=== PATIENT | male | born 1935 | race Caucasian/White ===

== ENCOUNTER 2023-02-12 14:05 | Outpatient (AMB) | payer MEDICARE, OTHER, SELFPAY ==
--- NOTE | 2023-02-12 14:32 | HO.NEPHOV ---
HPI HPI Comments History of Present Illness Details I had the pleasure of seeing Edin in follow-up of his chronic kidney disease and hypertension. He is regularly followed up in [place] for his vascular issues. His vascular surgeon has retired and has been assigned a new physician in [place]. He does not have any active vascular symptoms. He denies intermittent claudication, rest pain, discoloration of his toes. He is very active. He does not have any chest pain, shortness of breath , paroxysmal nocturnal dyspnea or orthopnea. He avoids nonsteroidal anti-inflammatory medications. His serum creatinine had been stable at 1.3. He feels well. [facility] Medical History (Updated 02/13/23 @ 05:09 by Denis Hou MD) Tubular adenoma Sciatica Raynauds phenomenon Plantar fasciitis Peripheral vascular disease Osteosclerosis Hypothyroidism Hypertension Hyperlipidemia Heart disease Depressive disorder Chronic sinusitis Chronic kidney disease Asthma Allergic rhinitis Surgical History (Updated 02/12/23 @ 14:19 by Faina Mendez MA) Hx of CABG History of hernia repair History of appendectomy Family History (Updated 02/12/23 @ 14:19 by Faina Mendez MA) Brother Heart disease Diabetes Social History (Updated 02/12/23 @ 14:19 by Faina Mendez MA) Alcohol intake: current Patient Tobacco Use Status: Former Tobacco user Vital Signs 02/12/23 14:33 Height 5 ft 6 in Weight 157 lb 6 oz BMI 25.4 BP 150/70 H Blood Pressure Location Lt brachial Position Sitting Pulse 64 Pulse Source Pulse Oximeter Pulse Oximetry (%) 97 Oxygen Delivery Method Room Air Physical Exam Vital Signs: Last Vital Signs Pulse 64 02/12/23 14:33 BP 150/70 H 02/12/23 14:33 Pulse Ox 97 02/12/23 14:33 Oxygen Delivery Method Room Air 02/12/23 14:33 BMI result Body Mass Index 25.4 Const General: comfortable and no acute distress Orientation/consciousness: patient oriented x3 HEENT Head: Yes normocephalic Mouth: Normal oral and palatal mucosa present Eyes EOM: EOMs intact bilaterally Neck Neck: Yes supple Resp Auscultation: clear to auscultation bilaterally Cardio Jugular venous distension: no JVD Rate: regular rate Heart sounds: Murmur heart sound present GI Palpation (GI): Soft to palpation Auscultation: normal bowel sounds General: Yes no CVA tenderness Back/Spine/Pelvis Back: no CVA tenderness Skin General skin exam: no rashes or lesions noted Neuro General: patient oriented x3 and moves all extremities Extrem General: Yes no pedal edema Assessment & Plan Assessment & Plan (1) CKD (chronic kidney disease) stage 3, GFR 30-59 ml/min: Code(s): N18.30 - Chronic kidney disease, stage 3 unspecified Qualifiers: Chronic kidney disease stage 3 subtype: stage 3a (GFR 45-59) Qualified Code(s): N18.31 - Chronic kidney disease, stage 3a (2) Hypertension: Code(s): I10 - Essential (primary) hypertension Qualifiers: 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 He has peripheral arterial disease as well. He follows up with the vascular surgeon. His serum creatinine has been stable at 1.3. His blood pressure has been at goal. I plan to do a Doppler of his renal arteries after his next office visit. He is on Plavix, statins as well as well as lisinopril and metoprolol which he is tolerating very well. His serum potassium has been normal. He is mildly anemic which has been closely followed by his primary care physician as per the patient. He does not have any active blood loss. He maintains good hydration. His volume status is quite optimal. I did not make any medication changes today. Follow-up blood work and urine studies were ordered. Answered all questions. Time spent during encounter, retrieval of data and documentation includes 31 minutes. Orders: Orders Calcium 02/12/23 I10 - Essential (primary) hypertension, N18.30 - Chronic kidney disease, stage 3 unspecified Complete Blood Count Auto Diff 02/12/23 I10 - Essential (primary) hypertension, N18.30 - Chronic kidney disease, stage 3 unspecified Electrolytes 02/12/23 I10 - Essential (primary) hypertension, N18.30 - Chronic kidney disease, stage 3 unspecified Blood Urea Nitrogen 02/12/23 I10 - Essential (primary) hypertension, N18.30 - Chronic kidney disease, stage 3 unspecified Creatinine 02/12/23 I10 - Essential (primary) hypertension, N18.30 - Chronic kidney disease, stage 3 unspecified Protein Creatinine Ratio, Ur 02/12/23 I10 - Essential (primary) hypertension, N18.30 - Chronic kidney disease, stage 3 unspecified Coding Level of Care Code Est Pt Level 4 (79457) Diagnoses Stage 3a chronic kidney disease N18.31 Chronic kidney disease stage 3 subtype: stage 3a (GFR 45-59) 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
[2023-02-12 14:33] VITALS: BP 150/70; PULSE 64; O2SAT 97; BMI 25.4
== END 2023-02-12 15:11 | disposition home or self-care (01) ==
PROVIDERS: PCP Internal Medicine; Visit Provider Internal Medicine Nephrology
DX: N18.31 Chronic kidney disease, stage 3a (principal); I15.0 Renovascular hypertension
CPT/HCPCS: 99214

== ENCOUNTER → 2023-02-12 14:05 | Outpatient (BNVA) | payer MEDICARE, OTHER, SELFPAY | PROVIDERS: PCP Internal Medicine; Visit Provider Internal Medicine Nephrology | DX: I15.0 Renovascular hypertension (principal); N18.31 Chronic kidney disease, stage 3a | CPT/HCPCS: 99212 ==

== ENCOUNTER 2023-06-16 09:24 | Outpatient (AMB) | payer MEDICARE, OTHER, SELFPAY ==
[2023-06-16 09:28] VITALS: BP 128/74; BMI 25.2
--- NOTE | 2023-06-16 09:28 | HO.NEPHOV_ITS ---
HPI HPI Comments History of Present Illness Details I had the pleasure of seeing Edin in follow-up of his chronic kidney disease and hypertension. He is regularly followed up in [place] for his vascular issues. His vascular surgeon has retired and has a new physician in [place]. He does not have any active vascular symptoms. He denies intermittent claudication, rest pain, discoloration of his toes. He is very active. He does not have any chest pain, shortness of breath , paroxysmal nocturnal dyspnea or orthopnea. He avoids nonsteroidal anti-inflammatory medications. His serum creatinine had been stable at 1.3. He has been having spinal stenosis and had intra articular injection. [facility] Medical History (Updated 02/13/23 @ 05:09 by Denis Hou MD) Tubular adenoma Sciatica Raynauds phenomenon Plantar fasciitis Peripheral vascular disease Osteosclerosis Hypothyroidism Hypertension Hyperlipidemia Heart disease Depressive disorder Chronic sinusitis Chronic kidney disease Asthma Allergic rhinitis Surgical History Hx of CABG History of hernia repair History of appendectomy Family History Brother Heart disease Diabetes Social History Alcohol intake: current Patient Tobacco Use Status: Former Tobacco user Vital Signs 06/16/23 09:28 Height 5 ft 6 in Weight 156 lb BMI 25.2 BP 128/74 Blood Pressure Location Lt brachial Position Sitting Physical Exam Vital Signs: Last Vital Signs BP 170/74 H 06/16/23 09:28 BMI result Body Mass Index 25.2 Const General: comfortable and no acute distress Orientation/consciousness: patient oriented x3 HEENT Head: Yes normocephalic Mouth: Normal oral and palatal mucosa present Eyes EOM: EOMs intact bilaterally Neck Neck: Yes supple Resp Auscultation: clear to auscultation bilaterally Cardio Jugular venous distension: no JVD Rate: regular rate GI Palpation (GI): Soft to palpation Auscultation: normal bowel sounds General: Yes no CVA tenderness Back/Spine/Pelvis Back: no CVA tenderness Skin General skin exam: no rashes or lesions noted Neuro General: patient oriented x3 and moves all extremities Extrem General: Yes no pedal edema Assessment & Plan Assessment & Plan (1) CKD (chronic kidney disease) stage 3, GFR 30-59 ml/min: Code(s): N18.30 - Chronic kidney disease, stage 3 unspecified Qualifiers: Chronic kidney disease stage 3 subtype: stage 3a (GFR 45-59) Qualified Code(s): N18.31 - Chronic kidney disease, stage 3a (2) Hypertension: Code(s): I10 - Essential (primary) hypertension Qualifiers: 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 He has peripheral arterial disease as well. He follows up with the vascular surgeon. His serum creatinine has been stable at 1.3. His blood pressure has been at goal. I plan to do a Doppler of his renal arteries if his BP is fluctuant. He is on Plavix, statins as well as well as lisinopril and metoprolol which he is tolerating very well. His serum potassium has been normal. He is mildly anemic which has been closely followed by his primary care physician as per the patient. He does not have any active blood loss. He maintains good hydration. His volume status is quite optimal. I did not make any medication changes today. Follow-up blood work and urine studies were ordered. Answered all questions. 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
== END 2023-06-16 09:52 | disposition home or self-care (01) ==
PROVIDERS: PCP Internal Medicine; Visit Provider Internal Medicine Nephrology
DX: N18.31 Chronic kidney disease, stage 3a (principal); I15.0 Renovascular hypertension
CPT/HCPCS: 99214

== ENCOUNTER → 2023-06-16 09:24 | Outpatient (BNVA) | payer MEDICARE, OTHER, SELFPAY | PROVIDERS: PCP Internal Medicine; Visit Provider Internal Medicine Nephrology | DX: N18.31 Chronic kidney disease, stage 3a (principal) | CPT/HCPCS: 99212 ==

== ENCOUNTER 2023-10-20 09:34 | Outpatient (AMB) | payer MEDICARE, OTHER, SELFPAY ==
[2023-10-20 09:51] VITALS: BP 122/70; PULSE 68; O2SAT 98; BMI 22.8
--- NOTE | 2023-10-20 09:51 | HO.NEPHOV_ITS ---
Vital Signs 10/20/23 09:51 Height 5 ft 6 in Weight 141 lb 2 oz BMI 22.8 BP 122/70 Blood Pressure Location Lt brachial Position Sitting Pulse 68 Pulse Source Pulse Oximeter Pulse Oximetry (%) 98 Oxygen Delivery Method Room Air Intake Visit Reasons: 4 mon follow up / [employer] Super[employer] Required: No Accompanied by: Self / Same As Patient Allergies No Known Allergies Allergy (Verified 10/20/23 09:52) HPI Comments Details: I had the pleasure of seeing Edin in follow-up of his chronic kidney disease and hypertension. He is regularly followed up in [place] for his vascular issues. His vascular surgeon has retired and has a new physician in [place]. He does not have any active vascular symptoms. He denies intermittent claudication, rest pain, discoloration of his toes. He is very active. He does not have any chest pain, shortness of breath , paroxysmal nocturnal dyspnea or orthopnea. He avoids nonsteroidal anti-inflammatory medications. His serum creatinine had been stable [facility] Medical History (Updated 02/13/23 @ 05:09 by Denis Hou MD) Tubular adenoma Sciatica Raynauds phenomenon Plantar fasciitis Peripheral vascular disease Osteosclerosis Hypothyroidism Hypertension Hyperlipidemia Heart disease Depressive disorder Chronic sinusitis Chronic kidney disease Asthma Allergic rhinitis Surgical History Hx of CABG History of hernia repair History of appendectomy Family History Brother Heart disease Diabetes Social History Alcohol intake: current Patient Tobacco Use Status: Former Tobacco user Physical Exam Vital Signs: Last Vital Signs Pulse 68 10/20/23 09:51 BP 122/70 10/20/23 09:51 Pulse Ox 98 10/20/23 09:51 Oxygen Delivery Method Room Air 10/20/23 09:51 BMI result Body Mass Index 22.8 Results Reviewed Nephrology Results: Hgb 12.1 g/dL (14.0-18.0) L 08/11/18 WBC 7.0 X10*3/uL (4.8-10.8) 08/11/18 Plt Count 178 X10*3/uL (160-400) 08/11/18 Sodium 139 MMOL/L (135-145) 08/11/18 Potassium 4.7 MMOL/L (3.3-5.1) 08/11/18 Chloride 106 MMOL/L (96-108) 08/11/18 BUN 34 MG/DL (9-16) H 08/11/18 Creatinine 1.18 MG/DL (0.5-1.4) 08/11/18 Calcium 9.5 MG/DL (8.4-10.2) 08/11/18 Urine Protein TRACE (NEG - TRACE) 08/11/18 Assessment & Plan Assessment & Plan (1) CKD (chronic kidney disease) stage 3, GFR 30-59 ml/min: Code(s): N18.30 - Chronic kidney disease, stage 3 unspecified Category: Medical Qualifiers: Chronic kidney disease stage 3 subtype: stage 3a (GFR 45-59) Qualified Code(s): N18.31 - Chronic kidney disease, stage 3a (2) Hypertension: Code(s): I10 - Essential (primary) hypertension Category: Medical Qualifiers: 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 He has peripheral arterial disease as well. He follows up with the vascular surgeon. His serum creatinine has been stable at 1.3. His blood pressure has been at goal. He is on Plavix, statins as well as well as lisinopril and metoprolol which he is tolerating very well. His serum potassium has been normal. He is mildly anemic which has been closely followed by his primary care physician as per the patient. He does not have any active blood loss. He maintains good hydration. His volume status is quite optimal. I did not make any medication changes today. Follow-up blood work and urine studies were ordered. 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
== END 2023-10-20 10:06 | disposition home or self-care (01) ==
PROVIDERS: PCP Internal Medicine; Visit Provider Internal Medicine Nephrology
DX: N18.31 Chronic kidney disease, stage 3a (principal); I15.0 Renovascular hypertension
CPT/HCPCS: 99214

== ENCOUNTER → 2023-10-20 09:34 | Outpatient (BNVA) | payer MEDICARE, OTHER, SELFPAY | PROVIDERS: PCP Internal Medicine; Visit Provider Internal Medicine Nephrology | DX: N18.31 Chronic kidney disease, stage 3a (principal); I15.0 Renovascular hypertension; Z79.02 Long term (current) use of antithrombotics/antiplatelets; Z79.899 Other long term (current) drug therapy | CPT/HCPCS: 99212 ==

== ENCOUNTER 2024-08-16 14:15 | Outpatient (AMB) | payer MEDICARE, OTHER, SELFPAY ==
--- NOTE | 2024-08-16 14:32 | HO.NEPHOV ---
Vital Signs 08/16/24 14:33 Height 5 ft 6 in Weight 141 lb BMI 22.8 BP 140/56 H Blood Pressure Location Lt brachial Position Sitting Intake Visit Reasons: rscng missed appt-LVM Retirement Assistant Required: No Accompanied by: Self / Same As Patient Allergies No Known Allergies Allergy (Verified 08/16/24 14:34) HPI Comments Details: I had the pleasure of seeing Edin in follow-up of his chronic kidney disease and hypertension. He does not have any active vascular symptoms. He denies intermittent claudication, rest pain, discoloration of his toes. He is very active. He does not have any chest pain, shortness of breath , paroxysmal nocturnal dyspnea or orthopnea. He avoids nonsteroidal anti-inflammatory medications. His serum creatinine had been stable [facility] Medical History (Updated 08/16/24 @ 14:52 by Denis Hou MD) Tubular adenoma Sciatica Raynauds phenomenon Plantar fasciitis Peripheral vascular disease Osteosclerosis Hypothyroidism Hypertension Hyperlipidemia Heart disease Depressive disorder Chronic sinusitis Chronic kidney disease Asthma Allergic rhinitis Surgical History Hx of CABG History of hernia repair History of appendectomy Family History Brother Heart disease Diabetes Social History Alcohol intake: current Patient Tobacco Use Status: Former Tobacco user Review of Systems Const All systems reviewed & are unremarkable except as noted in HPI and below Physical Exam Vital Signs: Last Vital Signs BP 140/56 H 08/16/24 14:33 BMI result Body Mass Index 22.8 Const General: comfortable and no acute distress Orientation/consciousness: patient oriented x3 HEENT Head: Yes normocephalic Mouth: Normal oral and palatal mucosa present Eyes EOM: EOMs intact bilaterally Neck Neck: Yes supple Resp Auscultation: clear to auscultation bilaterally Cardio Jugular venous distension: no JVD Rate: regular rate GI Palpation (GI): Soft to palpation Auscultation: normal bowel sounds General: Yes no CVA tenderness Back/Spine/Pelvis Back: no CVA tenderness Skin General skin exam: no rashes or lesions noted Neuro General: patient oriented x3 and moves all extremities Extrem General: Yes no pedal edema Assessment & Plan Assessment & Plan (1) CKD (chronic kidney disease) stage 3, GFR 30-59 ml/min: Code(s): N18.30 - Chronic kidney disease, stage 3 unspecified Category: Medical Qualifiers: Chronic kidney disease stage 3 subtype: stage 3a (GFR 45-59) Qualified Code(s): N18.31 - Chronic kidney disease, stage 3a (2) Hypertension: Code(s): I10 - Essential (primary) hypertension Category: Medical Qualifiers: Hypertension type: renovascular hypertension Qualified Code(s): I15.0 - Renovascular hypertension (3) AKANKSHA (acute kidney injury): Code(s): N17.9 - Acute kidney failure, unspecified Category: Medical Plan 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 He has peripheral arterial disease as well. His serum creatinine has gone up. His ACEI has been adjusted recently by PCP. His blood pressure has been at goal. His serum potassium has been normal. He is mildly anemic which has been closely followed by his primary care physician as per the patient. He does not have any active blood loss. He maintains good hydration. His volume status is quite optimal. I did not make any medication changes today. Follow-up blood work ordered. Answered all questions Orders: Orders Creatinine 1 Month I15.0 - Renovascular hypertension, N17.9 - Acute kidney failure, unspecified, N18.31 - Chronic kidney disease, stage 3a Blood Urea Nitrogen 1 Month I15.0 - Renovascular hypertension, N17.9 - Acute kidney failure, unspecified, N18.31 - Chronic kidney disease, stage 3a Electrolytes 1 Month I15.0 - Renovascular hypertension, N17.9 - Acute kidney failure, unspecified, N18.31 - Chronic kidney disease, stage 3a Coding Level of Care Code Est Pt Level 4 (45446) Diagnoses Stage 3a chronic kidney disease N18.31 Chronic kidney disease stage 3 subtype: stage 3a (GFR 45-59) 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
[2024-08-16 14:33] VITALS: BP 140/56; BMI 22.8
--- OUTSIDE RECORDS SUMMARY | 2024-08-16 15:41 | XMS_ITS | Clinical Summary ---
Author Organization [facility] Address [address] [place] [address] Phone Care Team Providers Care Instructor [employer] Name Role Phone Rj Genao MD Primary Care Provider [phone] Social History Tobacco Use Types Packs/Day Years Used Date Smoking Tobacco: Never Assessed Sex and Gender Information Value Date Recorded Sex Assigned at Male 03/11/2024 11:02 AM EST Legal Sex Male 1:44 PM EST Gender Identity Male 03/11/2024 11:02 AM EST Sexual Orientation Not on file Plan of Treatment Health Maintenance Due Date Last Done Comments Pneumococcal Vaccine: 50+ Years (2 of 2 - PCV) 2004 07/31/2003 RSV Immunization Adult Patients (1 - 1-dose 75+ series) 07/31/2011 DTaP,Tdap,and Td Vaccines (2 - Td or Tdap) 2013 07/31/2003 Zoster Vaccines (3 of 3) 11/01/2021 09/06/2021, 12/08/2012 Cholesterol Screening (Lipid Panel) 02/25/2022 Depression Screening 02/25/2022 Falls Risk Assessment 02/25/2022 Medicare Annual Wellness Visit 02/25/2022 Social Influencers of Health Screening 02/25/2022 Hypertension/CHF/CAD Annual BMP Blood Test 03/11/2022 COVID-19 Vaccine ( season) 2023 01/05/2023, 04/08/2022, 09/06/2021, Additional history exists Influenza Vaccine Completed 02/02/2024, , 01/03/2008 HIB Vaccines Aged Out No longer eligi ble based on patient's age to complete this topic HPV Vaccines Aged Out No longer eligi ble based on patient's age to complete this topic Hepatitis A Vaccines Aged Out No long er eligible based on patient's age to complete this topic Hepatitis B Vaccines Aged Out No long er eligible based on patient's age to complete this topic IPV Vaccines Aged Out No longer eligi ble based on patient's age to complete this topic MMR Vaccines Aged Out No longer eligi ble based on patient's age to complete this topic Meningococcal ACWY Vaccine Aged Out N o longer eligible based on patient's age to complete this topic Meningococcal B Vaccine Aged Out No l onger eligible based on patient's age to complete this topic RSV Immunization Patients Under 20 months Aged Out No longer eligible based on patient's age to complete this topic Varicella Vaccines Aged Out No longer eligible based on patient's age to complete this [place] [address] MEDICARE [facility] Care Teams Instructor [employer] Relationship Specialty Start Date End Date Rj Genao MD [address] [place] [address] PCP - General 10/30/03
--- OUTSIDE RECORDS SUMMARY | 2024-08-16 15:41 | XMS_ITS | Clinical Summary ---
Author Organization [facility] Address [address] [place] [address] Care Team Providers Care Optical Glass Wet Inspector Name Role Phone Unavailable Primary Care Provider Unavailabl e Allergies No known active allergies Medications Medication Sig Dispensed Refills Start Date End Date Status allopurinol (ZYLOPRIM) 100 MG tablet Take 100 mg by mouth. 0 01/11/2016 Active aspirin EC 81 MG tablet Take 81 mg by mouth. 0 Active atorvastatin (LIPITOR) tablet 40 mg TAKE 1 TABLET (40 MG TOTAL) BY MOUTH DAILY. 0 09/01/2016 Active clopidogrel (PLAVIX) 75 MG tablet Take 75 mg by mouth. 0 Active levothyroxine (SYNTHROID, LEVOXYL) tablet 100 mcg Take 100 mcg by mouth. 0 Active lisinopril (PRINIVIL,ZESTRIL) tablet 10 mg TAKE 1 TABLET BY MOUTH EVERY DAY 0 02/28/2016 Active montelukast (SINGULAIR) 10 MG tablet Take 10 mg by mouth. 0 Active Social History Tobacco Use Types Packs/Day Years Used Date Smoking Tobacco: Former Alcohol Use Standard Drinks/Week Comments Yes 2 (1 standard drink = 0.6 oz pur e alcohol) Sex and Gender Information Value Date Recorded Sex Assigned at Not on file Gender Identity Not on file Sexual Orientation Not on file Last Filed Vital Signs Vital Sign Reading Time Taken Comments Blood Pressure 120/78 02/06/2017 8:34 AM EST Pulse - - Temperature - - Respiratory Rate - - Oxygen Saturation - - Inhaled Oxygen Concentration - - Weight 74.8 kg (165 lb) 02/06/2017 8:34 AM EST Height 170.2 cm (5' 7 ) 02/06/2017 8:34 AM EST Body Mass Index 25.84 02/06/2017 8:34 AM EST Plan of Treatment Health Maintenance Due Date Last Done Comments COVID-19 Vaccine (#1) 01/30/1936 Depression Screening 1948 Preventative Health Evaluation 1954 DTap / Tdap / Td (1 - Tdap) 07/31/1955 Shingrix-Zoster Vaccine (1 of 2) 1986 Fall Risk Assessment 2001 Pneumococcal Vaccine (1 of 1 - PCV) 2001 RSV Adult > 60+ Yrs or Pregn ant (1 - 1-dose 75+ series) 07/31/2011 Influenza Vaccine (#1) 2023 Hepatitis B Vaccines Aged Out No long er eligible based on patient's age to complete this topic RSV Ped < 20 months Aged Out No longe r eligible based on patient's age to complete this topic
--- OUTSIDE RECORDS SUMMARY | 2024-08-16 15:41 | XMS_ITS | Clinical Summary ---
Author Organization [facility] Address [address] [facility] [address] [place] [address] Phone Care Team Providers Care Social Sciences Chair Name Role Phone Rj Genao MD Primary Care Provider [phone] Allergies No known active allergies Medications aspirin (ST CORRINA) 81 MG EC tablet Take 81 mg by mouth in the morning. Active clopidogrel (PLAVIX) 75 MG tablet Take 75 mg by mouth in the morning. 1 Active metoprolol succinate XL (TOPROL XL) 50 MG 24 hr tablet Take 50 mg by mouth 1 (one) time each day 2 Active allopurinol (ZYLOPRIM) 100 MG tablet Take 100 mg by mouth in the morning. 6 Active escitalopram (LEXAPRO) 10 MG tablet Take 10 mg by mouth 1 (one) time each day 2 Active atorvastatin (LIPITOR) 40 MG tablet Take 40 mg by mouth 1 (one) time each day 1 Active montelukast (SINGULAIR) 10 MG tablet Take 10 mg by mouth 1 (one) time each day 2 Active triamcinolone (KENALOG) 0.1 % cream PLEASE SEE ATTACHED FOR DETAILED DIRECTIONS 2 Active Advair HFA 230-21 MCG/ACT inhaler TAKE 2 PUFFS BY MOUTH TWICE A DAY 2 Active albuterol HFA (PROVENTIL HFA;VENTOLIN HFA) 108 (90 Base) MCG/ACT inhaler TAKE 2 PUFFS BY MOUTH EVERY 4 HOURS NEEDED FOR 30 DAYS 1 Active lisinopril 10 MG tablet Take 0.5 tablets (5 mg total) by mouth 1 (one) time each day 2 Active levothyroxine (SYNTHROID, LEVOTHROID) 137 MCG tablet Take 137 mcg by mouth 1 (one) time each day 3 Active Active Problems Problem Noted Date Diagnosed Date Chronic kidney disease 05/21/2021 Stage 3a chronic kidney disease 05/21/2021 Hypertension 05/21/2021 Renal stone 08/18/2005 Resolved Problems Problem Noted Date Diagnosed Date Resolved Date Hypothyroidism 05/21/2021 05/21/2021 Otosclerosis 05/21/2021 05/21/2021 Heart disease 05/21/2021 05/21/2021 Hypertension 05/21/2021 05/21/2021 Peripheral vascular disease 05/21/2021 05/21/2021 Allergic rhinitis 08/18/2005 05/21/2021 Appendectomy 08/18/2005 05/21/2021 Asthma 08/18/2005 05/21/2021 Chronic sinusitis 08/18/2005 05/21/2021 Degeneration of intervertebral disc 08/18/2005 05/21/2021 Depressive disorder 08/18/2005 05/21/19 Hernia repair 08/18/2005 05/21/2021 Hyperlipidemia 08/18/2005 05/21/2021 Plantar fasciitis 08/18/2005 05/21/2021 Raynaud's phenomenon 08/18/2005 022 Sciatica 08/18/2005 05/21/2021 Tendinitis AND/OR tenosynovi tis of the ankle region 08/18/2005 05/21/2021 Tubular adenoma, no ICD-O subtype 08/18/2005 05/21/2021 Immunizations Immunization Administration Dates Next Due Influenza Whole 01/03/2008 Pneumococcal Polysaccharide 07/31/2003 Td, Unspecified 07/31/2003 Family History Medical History Relation Comments Diabetes Brother Heart disease Brother Relation Status Comments Brother Father Mother Social History Tobacco Use Types Packs/Day Years Used Date Smoking Tobacco: Former Smokeless Tobacco: Never Tobacco Cessation:Counseling Given: Not Answered Alcohol Use Standard Drinks/Week Comments Yes 0 (1 standard drink = 0.6 oz pur e alcohol) Sex and Gender Information Value Date Recorded Sex Assigned at Not on file Legal Sex Male 8:30 AM EST Gender Identity Not on file Sexual Orientation Not on file Last Filed Vital Signs Vital Sign Reading Time Taken Comments Blood Pressure 130/60 09/09/2022 2:29 PM EDT Pulse 52 09/09/2022 2:29 PM EDT Temperature - - Respiratory Rate - - Oxygen Saturation - - Inhaled Oxygen Concentration - - Weight 72.5 kg (159 lb 12.8 oz) 09/09/2022 2:29 PM EDT Height - - Body Mass Index - - Plan of Treatment Health Maintenance Due Date Last Done Comments Pneumococcal Vaccine: 50+ Ye ars (2 of 2 - PCV) 2004 07/31/2003 Influenza Vaccine (Season Ended) 2024 01/03/20 08 Hepatitis B Vaccine Aged Out No longe r eligible based on patient's age to complete this topic Insurance Medicare [facility] Medicare Unicare Care Teams Social Sciences Chair Relationship Specialty Start Date End Date Rj Genao MD [address] [place] [address] PCP - General Internal Medicine 04/03/21
== END 2024-08-16 14:55 | disposition home or self-care (01) ==
LOC: HO.HKAS 14:16
PROVIDERS: PCP Internal Medicine; Visit Provider Internal Medicine Nephrology
DX: I12.9 Hypertensive chronic kidney disease with stage 1 through stage 4 chronic kidney disease, or unspecified chronic kidney disease (principal); N18.31 Chronic kidney disease, stage 3a; N17.9 Acute kidney failure, unspecified
CPT/HCPCS: 99214

== ENCOUNTER → 2024-08-16 14:15 | Outpatient (BNVA) | payer MEDICARE, OTHER, SELFPAY | PROVIDERS: PCP Internal Medicine; Visit Provider Internal Medicine Nephrology | DX: I15.0 Renovascular hypertension (principal); N18.31 Chronic kidney disease, stage 3a; N17.9 Acute kidney failure, unspecified | CPT/HCPCS: 99212 ==

== ENCOUNTER 2024-09-15 10:51 | Outpatient (REF) | payer MEDICARE, OTHER, SELFPAY ==
[2024-09-15 17:57] LABS: Anion Gap 14 (12-20); Blood Urea Nitrogen 24 mg/dL (9-16); Carbon Dioxide 21 mmol/L (22-29); Chloride 93 mmol/L (96-108); Estimated Glomerular Filt Rate > 60; Potassium 5.3 mmol/L (3.3-5.1); Sodium 123 mmol/L (135-145)
== END 2024-09-15 10:52 | disposition home or self-care (01) ==
LOC: HO.HKASLDS 10:51
PROVIDERS: PCP Internal Medicine; Visit Provider Internal Medicine Nephrology
DX: I15.0 Renovascular hypertension (principal); N17.9 Acute kidney failure, unspecified; N18.31 Chronic kidney disease, stage 3a
CPT/HCPCS: 36415; 80051; 82565; 84520; 99212

== ENCOUNTER 2024-09-15 10:51 | Outpatient (AMB) | payer MEDICARE, OTHER, SELFPAY ==
--- NOTE | 2024-09-15 10:56 | HO.NEPHOV ---
Vital Signs 09/15/24 10:57 Height 5 ft 6 in Weight 150 lb BMI 24.2 BP 110/68 Blood Pressure Location Lt brachial Position Sitting Pulse 54 Pulse Source Pulse Oximeter Pulse Oximetry (%) 99 Oxygen Delivery Method Room Air Intake Visit Reasons: 1mon follow-up w/labs-Conf Hand Packer/Packager Required: No Accompanied by: Self / Same As Patient Allergies No Known Allergies Allergy (Verified 09/15/24 10:57) HPI Comments Details: I had the pleasure of seeing Edin in follow-up of his chronic kidney disease and hypertension. He does not have any active vascular symptoms. He denies intermittent claudication, rest pain, discoloration of his toes. He is very active. He does not have any chest pain, shortness of breath , paroxysmal nocturnal dyspnea or orthopnea. He avoids nonsteroidal anti-inflammatory medications. His serum creatinine had been stable [facility] Medical History (Updated 08/16/24 @ 14:52 by Denis Hou MD) Tubular adenoma Sciatica Raynauds phenomenon Plantar fasciitis Peripheral vascular disease Osteosclerosis Hypothyroidism Hypertension Hyperlipidemia Heart disease Depressive disorder Chronic sinusitis Chronic kidney disease Asthma Allergic rhinitis Surgical History Hx of CABG History of hernia repair History of appendectomy Family History Brother Heart disease Diabetes Social History Alcohol intake: current Patient Tobacco Use Status: Former Tobacco user Review of Systems Const All systems reviewed & are unremarkable except as noted in HPI and below Physical Exam Vital Signs: Last Vital Signs Pulse 54 09/15/24 10:57 BP 110/68 09/15/24 10:57 Pulse Ox 99 09/15/24 10:57 Oxygen Delivery Method Room Air 09/15/24 10:57 BMI result Body Mass Index 24.2 Const General: comfortable and no acute distress Orientation/consciousness: patient oriented x3 HEENT Head: Yes normocephalic Mouth: Normal oral and palatal mucosa present Eyes EOM: EOMs intact bilaterally Neck Neck: Yes supple Resp Auscultation: clear to auscultation bilaterally Cardio Jugular venous distension: no JVD Rate: regular rate GI Palpation (GI): Soft to palpation Auscultation: normal bowel sounds General: Yes no CVA tenderness Back/Spine/Pelvis Back: no CVA tenderness Skin General skin exam: no rashes or lesions noted Neuro General: patient oriented x3 and moves all extremities Extrem General: Yes no pedal edema Assessment & Plan Assessment & Plan (1) AKANKSHA (acute kidney injury): Code(s): N17.9 - Acute kidney failure, unspecified Category: Medical (2) CKD (chronic kidney disease) stage 3, GFR 30-59 ml/min: Code(s): N18.30 - Chronic kidney disease, stage 3 unspecified Category: Medical Qualifiers: Chronic kidney disease stage 3 subtype: stage 3a (GFR 45-59) Qualified Code(s): N18.31 - Chronic kidney disease, stage 3a (3) Hypertension: Code(s): I10 - Essential (primary) hypertension Category: Medical Qualifiers: 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 He has peripheral arterial disease as well. His serum creatinine had gone up from baseline . His ACEI was adjusted recently by PCP. His blood pressure has been at goal. His serum potassium has been normal. He is mildly anemic which has been closely followed by his primary care physician as per the patient. He does not have any active blood loss. He maintains good hydration. His volume status is quite optimal. I did not make any medication changes today. Follow-up blood work ordered for today. Answered all questions Orders: Orders Creatinine 6 Months I15.0 - Renovascular hypertension, N17.9 - Acute kidney failure, unspecified, N18.31 - Chronic kidney disease, stage 3a Blood Urea Nitrogen 6 Months I15.0 - Renovascular hypertension, N17.9 - Acute kidney failure, unspecified, N18.31 - Chronic kidney disease, stage 3a Electrolytes 6 Months I15.0 - Renovascular hypertension, N17.9 - Acute kidney failure, unspecified, N18.31 - Chronic kidney disease, stage 3a Coding Level of Care Code Est Pt Level 4 (94645) Diagnoses AKANKSHA (acute kidney injury) N17.9 Stage 3a chronic kidney disease N18.31 Chronic kidney disease stage 3 subtype: stage 3a (GFR 45-59) 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
[2024-09-15 10:57] VITALS: BP 110/68; PULSE 54; O2SAT 99; BMI 24.2
--- OUTSIDE RECORDS SUMMARY | 2024-09-15 12:24 | XMS_ITS | Clinical Summary ---
Author Organization [facility] Address [address] [place] [address] Phone Care Team Providers Care Field Marketing Associate Name Role Phone Rj Genao MD Primary Care Provider [phone] Social History Tobacco Use Types Packs/Day Years [...] patient's age to complete this topic Insurance MEDICARE [facility] Care Teams Field Marketing Associate Relationship Specialty Start Date End Date Rj Genao MD [address] [place] [address] PCP - General 10/30/03
== END 2024-09-15 11:24 | disposition home or self-care (01) ==
LOC: HO.HKAS 10:51
PROVIDERS: PCP Internal Medicine; Visit Provider Internal Medicine Nephrology
DX: N17.9 Acute kidney failure, unspecified (principal); I12.9 Hypertensive chronic kidney disease with stage 1 through stage 4 chronic kidney disease, or unspecified chronic kidney disease; N18.31 Chronic kidney disease, stage 3a
CPT/HCPCS: 99214

== ENCOUNTER 2024-09-20 08:40 | Outpatient (REF) | payer MEDICARE, OTHER, SELFPAY ==
--- OUTSIDE RECORDS SUMMARY | 2024-09-20 09:01 | XMS_ITS | Clinical Summary ---
Author Organization [facility] Address [address] [facility] [address] [place] [address] Phone Care Team Providers Care Crate Opener Name Role Phone Rj Genao MD Primary Care Provider [phone] Allergies No known active allergies Medications aspirin [...] age to complete this topic Insurance Medicare [facility] Medicare Unicare Care Teams Crate Opener Relationship Specialty Start Date End Date Rj eGnao MD [address] [place] [address] PCP - General Internal Medicine 04/03/21
[2024-09-20 19:06] LABS: Anion Gap 13 (12-20); Blood Urea Nitrogen 28 mg/dL (9-16); Carbon Dioxide 22 mmol/L (22-29); Chloride 105 mmol/L (96-108); Estimated Glomerular Filt Rate 51; Sodium 135 mmol/L (135-145)
[2024-09-20 19:08] LABS: Osmolality Urine 367 mosm/kg (373-1093)
[2024-09-20 19:17] LABS: Cortisol Random 9.2 ug/dL
== END 2024-09-20 08:41 | disposition home or self-care (01) ==
LOC: HO.HKASLDS 08:40
PROVIDERS: Visit Provider Internal Medicine Nephrology
DX: E87.1 Hypo-osmolality and hyponatremia (principal)
CPT/HCPCS: 36415; 80051; 82533; 82565; 83935; 84300; 84443; 84520

== ENCOUNTER 2024-11-11 09:25 | Outpatient (AMB) | payer MEDICARE, OTHER, SELFPAY ==
--- OUTSIDE RECORDS SUMMARY | 2024-11-11 09:39 | XMS_ITS | Encounter Summary ---
Author Organization [facility] Address [address] [facility] [address] [place] [phone] Phone Care Team Providers Care Chlorination Operator Name Role Phone Rj Genao MD Primary Care Provider [phone] Encounter Details Date Type Department Care Team (Latest Contact Info) Description 06/21/2015 Transcribe Orders [facility] [address] [place] [address] [email or web address] Essential hypertension (Primary Dx) Social History Tobacco Use Types Packs/Day Years Used Date Smoking Tobacco: Former Sex and Gender Information Value Date Recorded Sex Assigned at Not on file Legal Sex Male 6:23 PM EST Gender Identity Not on file Sexual Orientation Not on file documented as of this encounter Plan of Treatment Scheduled Orders Name Type Priority Associated Diagnoses Orde r Schedule ECG 12 lead ECG Routine Essential hypertension Ordered: 06/21/2015 documented as of this encounter Visit Diagnoses Diagnosis Essential hypertension- Primary Unspecified essential hypertension documented in this encounter Additional Health Concerns Assessment Noted Time PHQ-9 Depression Total Score: 0 01/05/20 15 3:13 PM EDT PHQ-2 Depression Total Score: 0 06/21/19 16 10:55 AM EDT documented as of this encounter Care Teams Chlorination Operator Relationship Specialty Start Date End Date Rj Genao MD [address] [place] [address] PCP - General 08/03/14 documented as of this encounter Additional Source Comments The information contained in this document represents components of the legal health record. It is not the complete legal health record.[facility]
--- OUTSIDE RECORDS SUMMARY | 2024-11-11 09:40 | XMS_ITS | Clinical Summary ---
Author Organization [facility] Address [address] [place] [address] Care Team Providers Care Elementary Assistant Principal Name Role Phone Unavailable Primary Care Provider [...] 1-dose 75+ series) 07/31/2011 Influenza Vaccine (#1) 2024 Hepatitis B Vaccines Aged Out No long er eligible based on patient's age to complete this topic RSV Ped < 20 months Aged Out No longe r eligible based on patient's age to complete this topic
--- OUTSIDE RECORDS SUMMARY | 2024-11-11 09:40 | XMS_ITS | Clinical Summary ---
Author Organization [facility] Address [address] [facility] [address] [place] [address] Phone Care Team Providers Care Animal Surgeon Name Role Phone Rj Genao MD Primary Care Provider [phone]- [phone] Allergies No known active allergies Medications aspirin [...] 2 - PCV) 2004 07/31/2003 Influenza Vaccine (#1) 2024 01/03/2008 Hepatitis B Vaccine Aged Out No longe r eligible based on patient's age to complete this topic Insurance Medicare [facility] Medicare Unicare Care Teams Animal Surgeon Relationship Specialty Start Date End Date Rj Genao MD [address] [place] [address] PCP - General Internal Medicine 04/03/21
--- OUTSIDE RECORDS SUMMARY | 2024-11-11 09:40 | XMS_ITS | Clinical Summary ---
Author Organization [facility] Address [address] [place] [address] Phone Care Team Providers Care Customer Support Engineer Name Role Phone Rj Genao MD Primary Care Provider [phone] [phone] Social History Tobacco Use Types Packs/Day Years [...] 09/06/2021, 12/08/2012 Cholesterol Screening (Lipid Panel) 02/25/2022 Falls Risk Assessment 02/25/2022 Medicare Annual Wellness Visit 02/25/2022 Social Influencers of Health Screening 02/25/2022 Hypertension/CHF/CAD Annual BMP Blood Test 03/11/2022 COVID-19 Vaccine ( season) 2023 01/05/2023, 04/08/2022, 09/06/2021, Additional history exists Depression Screening 03/30/2024 Influenza Vaccine (#1) 2024 , 03/31/2023, 01/03/2008 HIB Vaccines Aged Out No longer [...] age to complete this topic Insurance MEDICARE [facility] Care Teams Customer Support Engineer Relationship Specialty Start Date End Date Rj Genao MD [address] [place] [address] PCP - General 10/30/03
--- NOTE | 2024-11-11 10:13 | A.SPINEOV_ITS ---
Intake Visit Reasons: LBP Intake Note: Mr. Lundberg is here today c/o back pain difficulty performing daily activities. MRI done @ [facility]. Prop Cutter Required: No Allergies No Known Allergies Allergy (Verified 09/15/24 10:57) Assessment & Plan Assessment & Plan (1) Lumbar stenosis: Code(s): M48.061 - Spinal stenosis, lumbar region without neurogenic claudication Category: Medical Plan Dear dr Thompson, Thank you for referring Mr Lundberg to our office today. He is a very nice 89-year-old gentleman with a history of coronary bypass as well as fem-pop bypass many years ago, who presents for evaluation of chronic low back pain centered in the lower lumbar region that is aggravated with standing and walking. There is also a component of leg pain and a feeling of fatigue in his legs when he is standing and walking. He has a very hard time complaining a lot of simple activity such as yd work. The back pain is present even when he is sitting down and even at nighttime when he is lying down. Leg pain only seems to accompany it when he is standing and walking. He has been through conservative management in the form of physical therapy as well as cortisone injections. It looks like you guys have done facet blocks on him and he did get some intermittent relief from this but nothing that was profound in the last few sets of injections. He has been taking gabapentin to help with the pain. He can not take anti-inflammatories because of chronic kidney disease. He did undergo physical therapy. He comes in today with an MRI done at [facility] showing severe stenosis at L3-4 amongst other degenerative disc changes. PMH: He has history of coronary artery disease with coronary artery bypass done 12 years ago. He has been stable since that time and reports no chest pain or shortness of breath. He also underwent a fem-pop bypass sometime around the same time and has been doing well with no residual issues. He is kept on aspirin and Plavix however. I believe that doctors in [place] who did his vascular surgeries. He also has chronic kidney disease stage 3, kidney stones, hernia repair, appendectomy, high cholesterol, gout, hypothyroidism. Social hx: He does not smoke, he does drink about half a bottle of wine a night and will take marijuana gummies every night Medications: Singulair, metoprolol, escitalopram, levothyroxine, atorvastatin, allopurinol, amlodipine, Plavix, aspirin, lisinopril, Advair and centrum silver Allergies: None Physical exam: Awake alert oriented, no acute distress, strength in the upper and lower extremities is normal, gait is normal, no instability with tandem gait walking. Slightly brisk reflexes in the upper and lower extremities, may have a Zachary's sign on the right hand but difficult to tell secondary to contractures secondary to Dupuytren's. Imaging review: Lumbar MRI done at [facility] shows multilevel degenerative disc disease at every level of the lumbar spine, there is severe stenosis at L3-4. Impression: 89-year-old male with a history of low back pain now for 2 years which is not responded to typical conservative treatment including cortisone injections, PT, tincture of time. I sat down with him in his son Naeem and went through the situation at length. We discussed the elusive nature of knowing where back pain is coming from and that the patient has multiple reasons to have back pain based on his MRI. Typically discogenic pain has treated with spinal fusion but at his age I do not think that is a reasonable option. He does have stenosis at L3-4 which is severe, and we talked about the fact that sometimes an atypical presentation of stenosis can be back pain, however surgery specifically to decompress the nerves for diagnosis of back pain can be unpredictable. He does have a component of claudicating leg pains with walking, which gets better when he sits and I think that could be related to the stenosis. He may be a good candidate for decompression at L3-4. Sometimes the back pain will improve as well, but I do not generally promise that before surgery. Once I have a chance to review everything with Dr. Melgoza I will call the patient's son Naeem to update him. We did briefly review lumbar decompression surgery involves. He would obviously have to come off the aspirin and Plavix perioperatively which he has done for injections in the past so that should be an issue. We would like to get a clearance note from his relief master or his primary care Dr. Genao before surgery if we do decide to move ahead. Thank you for allowing us to care for your patient. The total time spent with this visit with this patient was 45 minutes reviewing history, physical exam, lumbar imaging review, and implementation of treatment plan or further diagnostic testing Haroon Melgoza MD,PhD [facility] Coding Level of Care Code New Pt Level 4 (98312) Diagnoses Lumbar stenosis M48.061
== END 2024-11-11 11:23 | disposition home or self-care (01) ==
LOC: HO.HNS 09:26
PROVIDERS: PCP Internal Medicine; Referring Provider Physical Medicine & Rehabilitation; Visit Provider Physician Assistant
DX: M48.061 Spinal stenosis, lumbar region without neurogenic claudication (principal)
CPT/HCPCS: 99204

== ENCOUNTER → 2024-11-11 09:25 | Outpatient (BNVA) | payer MEDICARE, OTHER, SELFPAY | PROVIDERS: PCP Internal Medicine; Referring Provider Physical Medicine & Rehabilitation; Visit Provider Physician Assistant | DX: M48.061 Spinal stenosis, lumbar region without neurogenic claudication (principal); M51.360 Other intervertebral disc degeneration, lumbar region with discogenic back pain only | CPT/HCPCS: 99202 ==

== ENCOUNTER 2025-03-16 10:20 | Outpatient (AMB) | payer MEDICARE, OTHER, SELFPAY ==
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
--- NOTE | 2025-03-16 10:23 | HO.NEPHOV_ITS ---
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 He does not have any active vascular symptoms. He denies intermittent claudication, rest pain, discoloration of his toes. He is very active. He does not have any chest pain, shortness of breath , paroxysmal nocturnal dyspnea or orthopnea. He avoids nonsteroidal anti-inflammatory medications. His serum creatinine had been stable [facility] Medical History (Updated 11/11/24 @ 11:23 by GURU Tavares) Tubular adenoma Sciatica Raynauds phenomenon Plantar fasciitis Peripheral vascular disease Osteosclerosis Hypothyroidism Hypertension Hyperlipidemia Heart disease Depressive disorder Chronic sinusitis Chronic kidney disease Asthma Allergic rhinitis Surgical History Hx of CABG History of hernia repair History of appendectomy Family History Brother Heart disease Diabetes Social History Alcohol intake: current Patient Tobacco Use Status: Former Tobacco user Review of Systems Const All systems reviewed & are unremarkable except as noted in HPI and below Physical Exam Const General: comfortable and no acute distress Orientation/consciousness: patient oriented x3 HEENT Head: Yes normocephalic Mouth: Normal oral and palatal mucosa present Eyes EOM: EOMs intact bilaterally Neck Neck: Yes supple Resp Auscultation: clear to auscultation bilaterally Cardio Jugular venous distension: no JVD Rate: regular rate GI Palpation (GI): Soft to palpation Auscultation: normal bowel sounds General: Yes no CVA tenderness Back/Spine/Pelvis Back: no CVA tenderness Skin General skin exam: no rashes or lesions noted Neuro General: patient oriented x3 and moves all extremities Extrem General: Yes no pedal edema Results Reviewed Nephrology Results: Sodium, (135-145) 135 mmol/L 09/20/24 Potassium, (3.3-5.1) 5.0 mmol/L 09/20/24 Chloride, (96-108) 105 mmol/L 09/20/24 Carbon Dioxide, (22-29) 22 mmol/L 09/20/24 BUN, (9-16) 28 mg/dL H 09/20/24 Creatinine, (0.5-1.4) 1.32 mg/dL 09/20/24 Assessment & Plan Assessment & Plan (1) CKD (chronic kidney disease) stage 3, GFR 30-59 ml/min: Code(s): N18.30 - Chronic kidney disease, stage 3 unspecified Category: Medical Qualifiers: Chronic kidney disease stage 3 subtype: stage 3a (GFR 45-59) Qualified Code(s): N18.31 - Chronic kidney disease, stage 3a (2) Hypertension: Code(s): I10 - Essential (primary) hypertension Category: Medical Qualifiers: 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 He has peripheral arterial disease as well. His serum creatinine is at baseline . He is on ACEI. His blood pressure has been at goal. His serum potassium has been normal. He is anemic which has been closely followed by his primary care physician as per the patient. He does not have any active blood loss. He may need Procrit. He maintains good hydration. His volume status is quite optimal. I did not make any medication changes today. Follow-up blood work ordered for today. Answered all questions Orders: Orders Complete Blood Count Auto Diff 7 Weeks I15.0 - Renovascular hypertension, N18.31 - Chronic kidney disease, stage 3a Blood Urea Nitrogen 7 Weeks I15.0 - Renovascular hypertension, N18.31 - Chronic kidney disease, stage 3a Electrolytes 7 Weeks I15.0 - Renovascular hypertension, N18.31 - Chronic kidney disease, stage 3a Creatinine 7 Weeks I15.0 - Renovascular hypertension, N18.31 - Chronic kidney disease, stage 3a Coding Level of Care Code Est Pt Level 4 (31913) Diagnoses Stage 3a chronic kidney disease N18.31 Chronic kidney disease stage 3 subtype: stage 3a (GFR 45-59) 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
[2025-03-16 10:26] VITALS: BP 134/50; BMI 23.2
--- OUTSIDE RECORDS SUMMARY | 2025-03-16 12:44 | XMS_ITS | Clinical Summary ---
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 Active clopidogrel (PLAVIX) 75 mg tablet Take 75 mg by mouth daily. Active montelukast (SINGULAIR) 10 mg tablet Take 10 mg by mouth nightly. Active fluticasone-salmet leonard (ADVAIR HFA) 230-21 mcg/actuation inhaler Inhale 2 puffs into the lungs 2 (two) times a day. Reported on 07/17/2016 Active allopurinol (ZYLOPRIM) 100 MG tablet Take 1 tablet (100 mg total) by mouth daily. 30 tablet 0 6 Active atorvastatin (LIPITOR) 40 MG tabletIndications: Coronary artery disease,Peripheral vascular disease TAKE 1 TABLET BY MOUTH EVERY DAY 90 tablet 3 5 Active metoprolol succinate (TOPROL-XL) 50 MG 24 hr tablet TAKE 1 TABLET BY MOUTH EVERY DAY 90 tablet 3 5 Active lisinopril (PRINIVIL,ZESTRIL) 10 MG tabletIndications: Coronary artery disease,Peripheral vascular disease,Essential hypertension TAKE 1 TABLET BY MOUTH EVERY DAY 90 tablet 3 5 Active polyethylene glycol (MIRALAX) 17 gram packet Take 17 g by mouth daily. 10 packet 5 Active senna (SENOKOT) 8.6 mg tablet Take 2 tablets by mouth nightly at bedtime as needed for constipation. 20 tablet 5 Active oxyCODONE 5 MG immediate release tablet Take 1 tablet (5 mg total) by mouth every 4 (four) hours as needed for pain (specific location in comments). Partial fill ok 32 tablet 5 Active amLODIPine (NORVASC) 2.5 MG tablet Take 1 tablet by mouth every morning. 5 Active albuterol 90 mcg/actuation inhaler Inhale 2 puffs into the lungs every 6 (six) hours as needed for shortness of breath/dyspne a or wheezing. Active escitalopram oxalate (LEXAPRO) 5 MG tablet Take 1 tablet by mouth every morning. 5 Active gabapentin (NEURONTIN) 300 MG capsule Take 2 capsules by mouth 2 (two) times a day. 5 Active levothyroxine (SYNTHROID, LEVOTHROID) 112 MCG tablet Take 112 mcg by mouth every morning. 5 Active ferrous sulfate 325 mg (65 mg agdaagux iron) tablet Take 325 mg by mouth daily with breakfast. 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 Active ondansetron (ZOFRAN-ODT) 4 MG disintegrating tablet Take 1 tablet (4 mg total) by mouth every 8 (eight) hours as needed for nausea. 12 tablet 5 Active simethicone (MYLICON) 80 mg chewable tablet Take 1 tablet (80 mg total) by mouth every 6 (six) hours as needed (gas). 12 tablet 5 Active Active Problems Patient Care Coordination No te Formatting of this note is d ifferent from the original. Risk Assessment and Prediction Tool (RAPT) Value Score What is your age group? 50-65 years 66-75 years >75 years =0 Gender? Male Female =2 How far on average can you walk? (a block is 200 meters) Two blocks or more (+/- rest) 1-2 blocks (+/- rest) Housebound (most of time) =2 Which gait aid do you use? (more often than not) None Single-point stick Crutches/frame =2 Do you use community supports? (home help, meals on wheels, district nursing) None or one per week Two or more per week =1 Will you live with someone who can care for you after your operation? Yes No =3 Your score (out of 12) 10 Roa: Destination at discharge from acute care predicted by score. Scores <6 -- extended inpatient rehabilitation Score 6-9 -- additional intervention to discharge directly home (ie home care services) Score >9 -- directly home Problem Noted Date Diagnosed Date Ileus 12/23/2024 Lower back pain 12/20/2024 History of lumbar surgery 12/19/2024 Hyperlipidemia 08/17/2017 Asthma 08/17/2017 Uncoded Atherosclerosis of arteries of the extre mities 03/16/2012 Overview (05/20/2014): Atherosclerosis of arteries of the extremities Encounters Date Type Department Care Team Description 01/10/2025 11:15 AM EDT Office Visit [facility] [address] [place] [address], 3rd Floor, [address] [place] [address] Bart Arriola MD 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) 12/23/2024 8:11 PM EDT - 12/28/2024 4:10 PM EDT Hospital Encounter [facility] [address] [place] [address] Kenneth Owens MD Vogt, Nicholas Mathhew, MD, PhD Ann Norman MD, TAWANNA Stone Gonzales MD Discharge Disposition: Home or Self Care 12/23/2024 Procedure Pass [facility] Emergency Department, [facility] [address] [place] [address] 12/19/2024 2:27 PM EDT Anesthesia Event [facility] PERIOPERATIVE DEPT [address] [place] [phone] Savage Little MD Gulan, Paige Marie, RN 12/19/2024 1:52 PM EDT - 12/19/2024 5:14 PM EDT Surgery [facility] PERIOPER[facility]IVE DEPT [address] [place] [phone] Bart Arriola MD DECOMPRESSION LAMINECTOMY LUMBAR SPINE TWO LEVELS L2 to L4 12/19/2024 10:36 AM EDT - 12/20/2024 2:17 PM EDT Hospital Encounter [facility] [address] [place] [id number] Bart Arriola MD Discharge Disposition: Home or Self Care 12/19/2024 Procedure Pass [facility] PERIOPERATIVE DEPT [address] [place] [phone] from Last 3 Months Immunizations Immunization Administration Dates Next Due Pneumococcal polysaccharide PPSV23 10/09/2009(De ferred: Other) Family History Medical History Relation Comments Gout Mother Relation Status Comments Mother Social History Tobacco Use Types Packs/Day Years Used Date Smoking Tobacco: Former Cigarettes 1 30 0 03/30/1949 - 03/30/1979 Smokeless Tobacco: Former Tobacco Cessation:Counseling Given: Not Answered Alcohol Use Standard Drinks/Week Comments Yes 10 (1 standard drink = 0.6 oz pure alcohol) Drinks at least 2 glasses of wine per day. Education Answer Date Recorded Are you interested in more education? Not on tristen e 07/25/2022 Are you concerned about learning? Not on file 07/25/2022 No 07/25/2022 No 07/25/2022 Food Answer Date Recorded Within the past 6 months we worried whether our food would run out before we got money to buy more. Never True 12/23/2024 Within the past 6 months the food we bought just didn't last and we didn't have enough money to get more. Never True Residential Stability Answer Date Recor ded What is your housing situation today? I have jimmy sing 12/23/2024 How many times have you move d in the past 12 months? Zero (I did not move) 12/23/2024 Paying for Meds Answer Date Recorded Do you have trouble paying for medicines? No 12/23/2024 Paying Utility Bills Answer Date Record ed Do you have trouble paying your heating or elect ricity bill? No 12/23/2024 Transportation Answer Date Recorded Has the lack of transportati on kept you from medical appointments or from getting medications? No 12/23/2024 Digital Access Answer Date Recorded No 12/23/2024 Yes 12/23/2024 Do you have reliable internet access at home? Ye s 12/23/2024 Do you have a device (e.g., phone, tablet, computer) with a working camera? Yes 12/23/2024 Intimate Partner Violence Answer Date R ecorded Are you denied basic needs s uch as food, clothing, or medical care? No 12/24/2024 In the past 12 months have y ou been in a relationship with a person who hurts, threatens, or tries to control you? No 12/24/2024 Are you denied basic needs s uch as food, clothing, or medical care? No 12/24/2024 In the past 12 months have y ou been in a relationship with a person who hurts, threatens, or tries to control you? No 12/24/2024 Sex and Gender Information Value Date Recorded Sex Assigned at Male 12/23/2024 7:42 PM EDT Legal Sex Male 6:23 PM EST Gender Identity Male 12/23/2024 7:42 PM EDT Sexual Orientation Straight 12/23/2024 7: 42 PM EDT Last Filed Vital Signs Vital Sign Reading Time Taken Comments Blood Pressure 156/65 12/28/2024 7:22 AM EDT Pulse 58 12/28/2024 7:22 AM EDT Temperature 36.9 C (98.4 F) 12/28/2024 7:22 AM EDT Respiratory Rate 20 12/28/2024 7:22 AM EDT Oxygen Saturation 97% 12/28/2024 7:22 AM EDT Inhaled Oxygen Concentration - - Weight 65.8 kg (145 lb 1 oz) 12/26/2024 12:00 PM EDT Height 165.1 cm (5' 5 ) 12/26/2024 12:00 PM EDT Body Mass Index 24.14 12/26/2024 12:00 PM EDT Plan of Treatment Health Maintenance Due Date Last Done Comments PNEUMOCOCCAL VACCINES (50+ years) (2 of 2 - PCV) 2004 07/31/2003 RSV VACCINE (1 - 1-dose 75+ series) 07/31/2011 TSH LEVEL 08/03/2011 08/02/2010 Adult Td,Tdap Booster 2013 07/31/2003 ZOSTER VACCINES (3 of 3) 11/01/2021 09/06/2021, 12/0 08/2012 DEPRESSION SCREENING 07/04/2022 07/04/2021, 01/05/20 15 INFLUENZA VACCINE (#1) 2024 , 03/31/2023, 01/03/2008 COVID-19 VACCINE ( season) 2024 01/05/2023, 04/08/2022, 09/06/2021, Additional history exists CREATININE LEVEL 12/28/2025 12/28/2024, , 12/26/2024, Additional history exists POTASSIUM LEVEL 12/28/2025 12/28/2024, 11/30, 12/26/2024, Additional history exists HEPATITIS A VACCINES Aged Out No long er eligible based on patient's age to complete this topic HIB VACCINES Aged Out No longer eligi ble based on patient's age to complete this topic MENINGOCOCCAL VACCINES (ACWY) Aged Out No longer eligible based on patient's age to complete this topic MENINGOCOCCAL VACCINES (B) Aged Out N o longer eligible based on patient's age to complete this topic Goals Goal Patient Goal Type Associated Problems Recent Progress Patient-Stated? Author Autogenera jose Goal Care Plan Autogenerated Problem No Diane Ortiz Medical Devices Not on file Procedures Procedure Name Priority Date/Time Associated Diagnosis Comments HC ASSAY OF IRON Routine 12/28/2024 6:34 AM EDT LAB ADD ON Routine 12/28/2024 6:34 AM EDT CBC Routine 12/28/2024 6:34 AM EDT MAGNESIUM Routine 12/28/2024 6:34 AM EDT BASIC METABOLIC PANEL (BMP) Routine 12/28/2024 6:34 AM EDT CBC Routine 12/27/2024 6:31 AM EDT MAGNESIUM Routine 12/27/2024 6:31 AM EDT BASIC METABOLIC PANEL (BMP) Routine 12/27/2024 6:31 AM EDT CBC Routine 12/26/2024 6:37 AM EDT MAGNESIUM Routine 12/26/2024 6:37 AM EDT BASIC METABOLIC PANEL (BMP) Routine 12/26/2024 6:37 AM EDT XR ABDOMEN 1 VIEW Imaging in AM 12/25/2024 6:1 5 AM EDT CBC Routine 12/25/2024 6:11 AM EDT MAGNESIUM Routine 12/25/2024 6:11 AM EDT BASIC METABOLIC PANEL (BMP) Routine 12/25/2024 6:11 AM EDT FOLATE Routine 12/24/2024 6:20 AM EDT VITAMIN B12 Routine 12/24/2024 6:20 AM EDT CBC Routine 12/24/2024 6:20 AM EDT MAGNESIUM Routine 12/24/2024 6:20 AM EDT BASIC METABOLIC PANEL (BMP) Routine 12/24/2024 6:20 AM EDT ECG 12-LEAD STAT 12/23/2024 10:[address] ABDOMEN/PELVIS WITH CONTRAST Routine 12/23/2024 9:32 PM EDT LACTIC ACID (LACTATE) STAT 12/23/2024 8:29 PM EDT URINALYSIS WITH REFLEX TO URINE CULTURE STAT 12/23/2024 8:29 PM EDT LIPASE STAT 12/23/2024 8:29 PM EDT LFTS (HEPATIC PANEL) STAT 12/23/2024 8:29 PM EDT BASIC METABOLIC PANEL (BMP) STAT 12/23/2024 8:29 PM EDT CBC AND DIFFERENTIAL STAT 12/23/2024 8:29 PM EDT XR ABDOMEN 1 VIEW Routine 12/23/2024 7:1 4 PM EDT CBC Routine 12/20/2024 2:45 AM EDT BASIC METABOLIC PANEL (BMP) Routine 12/20/2024 2:45 AM EDT POCT GLUCOSE Routine 12/19/2024 5:07 PM EDT FL FLUORO GUIDANCE - NO CHARGE Routine 12/19/2024 4:48 PM EDT AIRWAY PLACEMENT Routine 12/19/2024 2:46 PM EDT AZ ZUNIGA FACETECTOMY&FORAMOT 1 VRT SGM EA ADDL SGM 12/19/2024 2:33 PM EDT Spinal stenosis of lumbar region with neurogenic claudication Special Needs PLACED PER AVANI ON 12/02 HISTORICAL LAB Routine 08/02/2010 12:45 PM EDT from Last 3 Months or Most Recently Relevant to Health Maintenance Results * (ABNORMAL) IRON, TIBC & FERRITIN, SERUM (12/28/2024 6:34 AM EDT) IRON 26(L) 65 - 175 ug/dL [facility] UIBC 150 112 - 347 ug/dL [facility] IRON BINDING CAPACITY 176(L) 250 - 450 ug/dL [facility] TRANSFERRIN SATURAT. 15 13 - 45 % [facility] FERRITIN 590(H) 22 - 322 ug/L [facility] 12/28/2024 6:34 AM EDT 12/28/2024 6:53 AM EDT us Santo Paulino MD, PhD LAB BLOOD BKR ORDE RABLES Final Result Performing Organization Address [facility] Co de Phone Number [facility] [address] [place] [address] * (ABNORMAL) CBC (12/28/2024 6:34 AM EDT) Only the most recent of6 resultswithin the time period is included. WBC 7.36 4.00 - 11.00 K/uL [facility] RBC 2.44(L) 4.50 - 5.90 M/uL [facility] HGB 8.0(L) 13.5 - 17.5 g/dL [facility] HCT 25.0(L) 41.0 - 53.0 % [facility] PLT 211 150 - 450 K/uL [facility] MCV 102.5(H) 80.0 - 100.0 fL [facility] MCH 32.8(H) 27.0 - 31.0 pg [facility] MCHC 32.0 32.0 - 36.0 g/dL [facility] RDW 13.2 11.5 - 14.5 % [facility] MPV 9.7 8.4 - 12.0 fL [facility] NRBC 0.00 0.00 /100 WBCs [facility] Blood 12/28/2024 6:34 AM EDT 12/28/2024 6:48 AM EDT Santo Paulino MD, PhD LAB BLOOD VIKRAM KEARNS Final Result Performing Organization Address City/[facility]/ZIP Co de Phone Number [facility] [address] [place] [address] * Lab Add On: ferritin, iron, TIBC (12/28/2024 6:34 AM EDT) TEST REQUESTED FERRITIN, IRON, TIBC [facility] Comments (Chemistry) ADD ON COMPLETE. [facility] 12/28/2024 6:34 AM EDT 12/28/2024 7:51 AM EDT us Stone Gonzales MD LAB BLOOD ORDERABLES Final R esult Performing Organization Address City/[facility]/ZIP Co de Phone Number [facility] [address] [place] [address] * Magnesium (12/28/2024 6:34 AM EDT) Only the most recent of5 resultswithin the time period is included. MAGNESIUM 1.4 1.3 - 2.7 mg/dL [facility] Blood 12/28/2024 6:34 AM EDT 12/28/2024 6:53 AM EDT us Santo Paulino MD, PhD LAB BLOOD BKR ORDE RABLES Final Result Performing Organization Address [facility] Co de Phone Number [facility] [address] [place] [address] * (ABNORMAL) Basic metabolic panel (12/28/2024 6:34 AM EDT) Only the most recent of7 resultswithin the time period is included. SODIUM 142 136 - 145 mmol/L [facility] CHLORIDE 108(H) 95 - 106 mmol/L [facility] POTASSIUM 3.8 3.5 - 5.2 mmol/L [facility] CO2 23 20 - 31 mmol/L [facility] BUN 32(H) 9 - 23 mg/dL [facility] CREATININE 1.41(H) 0.50 - 1.30 mg/dL [facility] GLUCOSE 108(H) 74 - 106 mg/dL [facility] CALCIUM 8.9 8.7 - 10.4 mg/dL [facility] EGFR 48(L) >60 mL/min/1.7 3m2 [facility] Comment:Estimated glomerular filtration rate calculated using the CKD-EPI refit equation. ANION GAP 11 3 - 17 mmol/L [facility] Blood 12/28/2024 6:34 AM EDT 12/28/2024 6:53 AM EDT us Santo Paulino MD, PhD LAB BLOOD BKR KELLI KEARNS Final Result [facility] [address] [place] [address] * XR ABDOMEN 1 VIEW (12/25/2024 6:15 AM EDT) Anatomical Region Laterality Modality Abdomen Computed Radiogr aphy 12/25/2024 8:32 AM EDT Impressions 12/25/2024 8:32 AM EDT Interval slight worsening of small bowel dilation since December 23, 2024. Narrative 12/25/2024 8:32 AM EDT XR ABDOMEN 1 VIEW Referring clinician's provided indication for this examination in [facility]: Abdominal distension COMPARISON: XR ABDOMEN 1 VIEW ; CT ABDOMEN/PELVIS WITH CONTRAST FINDINGS: Tubes/Lines: None Bowel: Dilated small bowel appears slightly worse in comparison to December 24, 2023 examination. There is no large bowel dilatation. There is contrast within the bladder. Procedure Note Simón Steen MD, PhD - 12/25/2024 XR ABDOMEN 1 VIEW Referring clinician's provided indication for this examination in [facility]:Abdominal distension COMPARISON: XR ABDOMEN 1 VIEW ; CT ABDOMEN/PELVIS WITH [id number] FINDINGS: Tubes/Lines: None Bowel: Dilated small bowel appears slightly worse in comparison toSept2023 examination. There is no large bowel dilatation. There is contrast within the bladder. IMPRESSION: Interval slight worsening of small bowel dilation since November. us Brayan Licona MD IMG XR ABDOMEN Final Result * Folate (12/24/2024 6:20 AM EDT) FOLIC ACID >20.0 4.6 - 34.8 ng/mL [facility] Blood 12/24/2024 6:20 AM EDT 12/24/2024 7:47 AM EDT us Santo Paulino MD, PhD LAB BLOOD VIKRAM KEARNS Final Result Performing Organization Address City/[facility]/ZIP Co de Phone Number [facility] [address] [place] [address] * Vitamin B12 (12/24/2024 6:20 AM EDT) VITAMIN B12 730 211 - 911 pg/mL [facility] Blood 12/24/2024 6:20 AM EDT 12/24/2024 7:47 AM EDT us Santo Paulino MD, PhD LAB BLOOD KURTR KELLI KEARNS Final Result Performing Organization Address [facility] Co de Phone Number [facility] [address] [place] [address] * ECG 12-LEAD (12/23/2024 10:55 PM EDT) Ventricular Rate EKG/MIN 91 BPM [facility] Atrial Rate 91 BPM [facility] AZ Interval 204 ms [facility] QRS Duration 124 ms [facility] QT Interval 392 ms [facility] QTC Interval 482 ms [facility] P [place] 94 degrees [facility] R Wave [place] 23 degrees [facility] T Wave [place] 19 degrees [facility] 12/23/2024 10:5 5 PM EDT Narrative [facility] - 12/26/2024 8:49 AM EDT SINUS RHYTHM WITH PREMATURE ATRIAL COMPLEXES RIGHT BUNDLE BRANCH BLOCK ABNORMAL ECG NO PREVIOUS ECGS AVAILABLE us Uyen Hernandez PA-C ECG ORDERABLES Final Result Performing Organization Address [facility] Co de Phone Number [facility] * CT ABDOMEN/PELVIS WITH CONTRAST (12/23/2024 9:32 PM EDT) MGB IMG LEARNING SPECIALIST COMMENT Likely ileus. Saccular aneurysms of the aorta. [facility] Anatomical Region Laterality Modality Abdomen, Pelvis Computed Tomogra phy 12/23/2024 10:1 4 PM EDT Impressions 12/23/2024 10:29 PM EDT 1. Numerous loops of mildly dilated mid and distal small bowel with air-fluid levels but no discrete transition point, favored to represent ileus. 2. Sequelae of recent L2-3 and L3-4 laminectomies. No appreciable fluid collections. 3. 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 A clinically significant result was initiated on 12/23/2024 10:29 PM, Message ID [id number]. Narrative 12/23/2024 10:[address] ABDOMEN/PELVIS WITH CONTRAST Referring clinician's provided indication for this examination in Epic: * Bowel obstruction suspected TECHNIQUE: Multidetector-row CT of the abdomen and pelvis was performed after administration of intravenous contrast using tailored dose modulation techniques. Images were reconstructed in the axial, coronal, and sagittal planes. COMPARISON: XR ABDOMEN 1 VIEW 19:05:03.000 FINDINGS: Lower Chest: No consolidation or pleural effusions. Minimal bibasilar atelectasis. Moderate aortic valve calcifications. Partially visualized severe coronary calcifications. Small hiatal hernia. Liver: Multiple scattered hepatic cysts measuring up to 2.8 cm, some with peripheral calcifications. Additional too small to characterize subcentimeter hypodensities, also likely benign. Biliary: No calcified gallstones or pericholecystic inflammation. No biliary ductal dilatation. Spleen: No splenomegaly or focal lesions. Pancreas: No peripancreatic fat stranding or ductal dilatation. Adrenal Glands: No nodules. Kidneys/Ureters: No solid masses, stones, or hydronephrosis. Bilateral subcentimeter renal hypodensities, too small to characterize but likely benign cysts. Bowel: Prior appendectomy. Numerous loops of mildly dilated loops of mid and distal small bowel with air-fluid levels but no discrete transition point. Normal caliber colon. Colonic diverticulosis. No bowel wall thickening. Peritoneum/Retroperitoneum: No masses, pneumoperitoneum, or fluid. Lymph Nodes: No lymphadenopathy. Pelvic Organs/Bladder: Mildly prominent prostate with parenchymal calcifications. Vessels: Severe diffuse atherosclerotic disease. 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 Multifocal aortic and branch vessel stenoses, suboptimally evaluated on this non-angiographic study. Bones/Soft Tissues: Sequelae of recent L2-3 and L3-4 laminectomies with scattered foci of soft tissue gas and soft tissue swelling in the operative bed. No visualized fluid collections. Diffuse body wall edema. Diffuse osseous demineralization and degenerative changes. Prior median sternotomy. Procedure Note Ted Boothe MD - 12/23/2024 CT ABDOMEN/PELVIS WITH CONTRAST Referring clinician's provided indication for this examination in Epic: *Bowel obstruction suspected TECHNIQUE: Multidetector-row CT of the abdomen and pelvis was performedafter administration of intravenous contrast using tailored dosemodulation techniques. Images were reconstructed in the axial, coronal,and sagittal planes. COMPARISON: XR ABDOMEN 1 VIEW 19:05:03.000 FINDINGS: Lower Chest: No consolidation or pleural effusions. Minimal bibasilaratelectasis. Moderate aortic valve calcifications. Partially visualizedsevere coronary calcifications. Small hiatal hernia. Liver: Multiple scattered hepatic cysts measuring up to 2.8 cm, some withperipheral calcifications. Additional too small to characterizesubcentimeter hypodensities, also likely benign. Biliary: No calcified gallstones or pericholecystic inflammation. Nobiliary ductal dilatation. Spleen: No splenomegaly or focal lesions. Pancreas: No peripancreatic fat stranding or ductal dilatation. Adrenal Glands: No nodules. Kidneys/Ureters: No solid masses, stones, or hydronephrosis. Bilateralsubcentimeter renal hypodensities, too small to characterize but likelybenign cysts. Bowel: Prior appendectomy. Numerous loops of mildly dilated loops of midand distal small bowel with air-fluid levels but no discrete transitionpoint. Normal caliber colon. Colonic diverticulosis. No bowel wallthickening. Peritoneum/Retroperitoneum: No masses, pneumoperitoneum, or fluid. Lymph Nodes: No lymphadenopathy. Pelvic Organs/Bladder: Mildly prominent prostate with parenchymalcalcifications. Vessels: Severe diffuse atherosclerotic disease. There are 2 saccularaneurysms of the infrarenal abdominal aorta measuring up to 2.8 x 1.7 cm(3:389) and 3.6 x 2.3 cm (3:455). Additional saccular aneurysm of the leftcommon iliac artery measuring up to 1.2 x 0.8 cm (3:565). Multifocalaortic and branch vessel stenoses, suboptimally evaluated on thisnon-angiographic study. Bones/Soft Tissues: Sequelae of recent L2-3 and L3-4 laminectomies withscattered foci of soft tissue gas and soft tissue swelling in theoperative bed. No visualized fluid collections. Diffuse body wall edema.Diffuse osseous demineralization and degenerative changes. Prior mediansternotomy. IMPRESSION: 1. Numerous loops of mildly dilated mid and distal small bowel withair-fluid levels but no discrete transition point, favored to representileus. 2. Sequelae of recent L2-3 and L3-4 laminectomies. No appreciable fluidcollections. 3. Severe diffuse atherosclerotic disease with two saccular aneurysms ofthe infrarenal abdominal aorta measuring up to 3.6 x 2.3 cm and additionalsaccular aneurysm of the left common iliac artery measuring up to 1.2cm. A clinically significant result was initiated on 12/23/2024 10:29 PM,Message ID [id number]. us Uyen Hernandez PA-C IMG CT ABD/PELVIS Final Resul t * (ABNORMAL) Urinalysis w/reflex Urine Culture (12/23/2024 8:29 PM EDT) COLOR Yellow Yellow [facility] CLARITY Clear Clear [facility] SPECIFIC GRAVITY 1.037(H) 1.001 - 1.030 [facility] BLOOD Negative Negative [facility] BILI Negative Negative [facility] KETONES Negative Negative [facility] GLUCOSE Negative Negative [facility] URINE PROTEIN 1+(A) Negative [facility] PH 5.0 5 - 8 [facility] Leukocyte esterase, ur Negative Negative [facility] NITRITE Negative Negative [facility] UROBILINOGEN Negative Negative [facility] RBC 0 0 - 2 /hpf [facility] WBC 4 0 - 9 /hpf [facility] BACTERIA Few(A) NONE SEEN /hpf [facility] SQUAMOUS CELLS <1 0 - 4 /hpf [facility] HYALINE CAST 17(H) 0 - 2 /lpf [facility] Urine (Urine) 12/23/2024 8:2 9 PM EDT 12/24/2024 2:11 AM EDT us Uyen Hernandez PA-C LAB URINE ORDERABLES Final Re sult Performing Organization Address [facility]/ZIP Co de Phone Number [facility] [address] [place] [address] * (ABNORMAL) LFTs (hepatic panel) (12/23/2024 8:29 PM EDT) ALBUMIN 4.0 3.5 - 4.8 g/dL [facility] TOTAL BILIRUBIN 0.5 0.0 - 1.0 mg/dL [facility] DIRECT BILIRUBIN 0.3 0 - 0.4 mg/dL [facility] ALKALINE PHOSPHATASE 78 27 - 129 U/L [facility] AST 28 6 - 40 U/L [facility] ALT 8(L) 10 - 49 U/L [facility] TOTAL PROTEIN 6.6 5.7 - 8.2 g/dL [facility] GLOBULIN 2.6 1.9 - 4.1 g/dL [facility] Blood 12/23/2024 8:29 PM EDT 12/23/2024 8:54 PM EDT us Uyen Hernandez PA-C LAB BLOOD BKR ORDERABLES Ebony l Result Performing Organization Address [facility]/ZIP Co de Phone Number [facility] [address] [place] [address] * (ABNORMAL) CBC and differential (12/23/2024 8:29 PM EDT) WBC 12.14(H) 4.00 - 11.00 K/uL [facility] RBC 2.79(L) 4.50 - 5.90 M/uL [facility] HGB 9.3(L) 13.5 - 17.5 g/dL [facility] HCT 29.7(L) 41.0 - 53.0 % [facility] PLT 191 150 - 450 K/uL [facility] MCV 106.5(H) 80.0 - 100.0 fL [facility] MCH 33.3(H) 27.0 - 31.0 pg [facility] MCHC 31.3(L) 32.0 - 36.0 g/dL [facility] RDW 13.5 11.5 - 14.5 % [facility] MPV 10.6 8.4 - 12.0 fL [facility] NRBC 0.00 0.00 /100 WBCs [facility] DIFF METHOD Auto [facility] NEUTS 76.2(H) 48.0 - 76.0 % [facility] LYMPHS 9.4(L) 18.0 - 41.0 % [facility] MONOS 12.6(H) 4.0 - 11.0 % [facility] EOS 0.9 0.0 - 5.0 % [facility] BASOS 0.2 0.0 - 1.5 % [facility] Granulocytes, immature (%) 0.7 0.0 - 0.9 % [facility] ABSOLUTE NEUTS 9.25(H) 1.92 - 7.60 K/uL [facility] ABSOLUTE LYMPHS 1.14 0.72 - 4.10 K/uL [facility] ABSOLUTE MONOS 1.53(H) 0.16 - 1.10 K/uL [facility] ABSOLUTE EOS 0.11 0.00 - 0.50 K/uL [facility] ABSOLUTE BASOS 0.03 0.00 - 0.15 K/uL [facility] Granulocytes, immature 0.08 0.00 - 0.09 K/uL [facility] Blood 12/23/2024 8:29 PM EDT 12/23/2024 8:50 PM EDT us Uyen Hernandez PA-C LAB BLOOD BKR ORDERABLES Ebony l Result [facility] [address] [place] [address] * Lipase (12/23/2024 8:29 PM EDT) LIPASE 17 6 - 51 U/L [facility] Blood 12/23/2024 8:29 PM EDT 12/23/2024 8:54 PM EDT us Uyen GARVEY-C LAB BLOOD BKR ORDERABLES Ebony l Result Performing Organization Address [facility] de Phone Number [facility] [address] [place] [address] * Lactate (12/23/2024 8:29 PM EDT) LACTIC ACID (MMOL/L) 1.4 0.5 - 1.9 mmol/L [facility] Blood 12/23/2024 8:29 PM EDT 12/23/2024 9:24 PM EDT us Uyen GARVEY-C LAB BLOOD BKR ORDERABLES Ebony l Result Performing Organization Address [facility] de Phone Number [facility] [address] [place] [address] * XR ABDOMEN 1 VIEW (12/23/2024 7:14 PM EDT) Anatomical Region Laterality Modality Abdomen Computed Radiogr aphy 12/23/2024 8:07 PM EDT Impressions 12/23/2024 8:08 PM EDT Moderate gas-filled small bowel loops with air-fluid levels concerning for distal obstruction. Moderate fecal loading of the colon, constipation. Narrative 12/23/2024 8:08 PM EDT XR ABDOMEN 1 VIEW Referring clinician's provided indication for this examination in Epic: Constipation COMPARISON: None FINDINGS: Tubes/Lines: None Bowel: Moderate gas filled small bowel loops are present with air-fluid levels. Findings are concerning for distal obstruction. Moderate fecal loading of the colon, constipation. No pneumatosis or pneumoperitoneum. Moderate degenerative changes of the spine and hips. No acute osseous abnormality Procedure Note Maria D Madera MD, PhD - 12/23/2024 XR ABDOMEN 1 VIEW Referring clinician's provided indication for this examination in Epic:Constipation COMPARISON: None FINDINGS: Tubes/Lines: None Bowel: Moderate gas filled small bowel loops are present with air-fluidlevels. Findings are concerning for distal obstruction. Moderate fecalloading of the colon, constipation. No pneumatosis or pneumoperitoneum. Moderate degenerative changes of the spine and hips. No acute osseousabnormality IMPRESSION: Moderate gas-filled small bowel loops with air-fluid levels concerning fordistal obstruction. Moderate fecal loading of the colon, constipation. us Chiki Hanna MD IMG XR ABDOMEN Final Result * (ABNORMAL) POCT Glucose (12/19/2024 5:07 PM EDT) Glucose, POCT 116(H) 70 - 110 mg/dL [facility] 12/19/2024 5:07 PM EDT 12/19/2024 5:09 PM EDT us Bart Arriola MD POINT OF CARE TEST ORDERAB LES Final Result [address] [id number] * [place] Fluoroscopy Guidance - No Charge (12/19/2024 4:48 PM EDT) 12/19/2024 10:4 4 PM EDT Narrative [facility] - 12/19/2024 10:44 PM EDT Dose (mGy): 2.1644 Dose Area Product (DAP): .4451 Dose Area Product (DAP) Units: Gy.cm2 Fluoro time (min): 4.3 seconds Number of Spot Films: 2 Radimetrics Dose Report: CTDIvol: 0 mGy. DLP: 0 mGy-cm. Procedure Note Intensivist, Dictation - 12/19/2024 Dose (mGy): 2.1644 Dose Area Product (DAP): .4451 Dose Area Product (DAP) Units: Gy.cm2 Fluoro time (min): 4.3 seconds Number of Spot Films: 2 Radimetrics Dose Report: CTDIvol: 0 mGy. DLP: 0 mGy-cm. us Bart Arriola MD IMG [place] EXAMS Final Resu lt [facility] [address] [place] [address] * ANES ETT DOUBLE LUMEN - AIRWAY LDA (12/19/2024 2:46 PM EDT) Narrative Hector Rob MD - 12/19/2024 2:46 PM EDT Hector Rob MD 12/19/2024 3:18 PM Airway Placement Procedure Note: Patient was not difficult to intubate. Procedure performed by: fellow/resident/IMAGING SYSTEM ADMINISTRATOR Anesthesiologist: Savage Little MD Fellow/Resident/IMAGING SYSTEM ADMINISTRATOR: Hector Rob MD Airway procedure initiated at:12/19/2024 2:46 PM and ended at. Personal Protective Equipment: Mask: surgical mask Gloves: gloves Mask Ventilation: Quality: easy Airway Placement: Technique: direct laryngoscopy Rapid sequence induction: no Details: Blade type: Mac Blade size: 3 Direct view: grade 1 Number of attempts: 2 ETT type: cuffed ETT size: 7.5 ETT depth at teeth: 21 Tube position confirmed by: bilateral breath sounds and EtCO2 Outcomes: Evidence of dental injury? no Complications observed? no Notes: Patient intubated on stretcher prior flipping prone onto OR table. Initial attempt with grade 3 view. Patient re-positioned and grade 1 view obtained. ETT passed without issue. us Savage Little MD [place] ANESTHESIA Final Result * Historical Lab (08/02/2010 12:45 PM EDT) POTASSIUM 4.5 3.4 - 5.0 mmol/L [facility] MAGNESIUM 2.1 1.7 - 2.6 mg/dL [facility] TSH 1.47 0.5 - 5.7 mIU/L [facility] T4,FREE 1.0 0.9 - 1.7 ng/dL [facility] 08/02/2010 12:4 5 PM EDT Comment:BLOOD us Conversion Provider Not In Sys LAB BLOOD ORDERAB LES Final Result [address] [address] from Last 3 Months or Most Recently Relevant to Health Maintenance Additional Health Concerns Active Problems Noted Date Diagnosed Date Autogenerated Problem 02/18/2025 Insurance [place] [id number] [facility] MEDICARE SUPPLEMENT MEDICARE PART A & B [facility] [employer] MEDICARE SUPPLEMENT MEDICARE PART A & B [facility] [employer] MEDICARE SUPPLEMENT MEDICARE PART A & B [facility] [employer] MEDICARE SUPPLEMENT MEDICARE PART A & B [facility] MEDICARE SUPPLEMENT MEDICARE PART A & B [employer] MED[employer] SUPPLEMENT MEDICARE PART A & B [employer] MEDICARE SUPPLEMENT MEDICARE PART A & B [employer] MEDICARE SUPPLEMENT MEDICARE PART A & B [employer] MEDICARE SUPPLEMENT [place] [id number] Advance Directives For more information, please contact: [phone] (9AM - 5PM [facility], Thursday-Thursday) * Full Code (Latest Code Status on File) Date Activated Date Inactivated Comments 12/24/2024 1:47 AM Question Answer Comments Code Status Confirmed With: PatientFamily Care Teams Roll Line Operator Relationship Specialty Start Date End Date Rj Genao MD [address] [place] [address] PCP - General Internal Medicine 12/26/24 Additional Source Comments The information contained in this document represents components of the legal health record. It is not the complete legal health record.[facility]
--- OUTSIDE RECORDS SUMMARY | 2025-03-16 12:44 | XMS_ITS | Encounter Summary ---
Author Organization [facility] Address [address] [place] [address] Phone Care Team Providers Care Door Hanger Name Role Phone Rj Genao MD Primary Care Provider Pcp, Not Required Primary Care Provider [facility] Rj Genao MD Primary Care Provider [phone] Encounter Details Date Type Department Care Team (Late st Contact Info) Description 01/03/2021 Procedure [facility] [address] [place] [address] Social History Tobacco Use Types Packs/Day Years Used Date Smoking Tobacco: Former Smokeless Tobacco: Former Sex and Gender Information Value Date Recorded Sex Assigned at Male 12/23/2024 7:42 PM EDT Legal Sex Male 6:23 PM EST Gender Identity Male 12/23/2024 7:42 PM EDT Sexual Orientation Straight 12/23/2024 7: 42 PM EDT documented as of this encounter Plan of Treatment Not on file documented as of this encounter Visit Diagnoses Not on filedocumented in this encounter Additional Health Concerns Assessment Noted Time PHQ-9 Depression Total Score: 0 01/05/20 15 3:13 PM EDT PHQ-2 Depression Total Score: 0 07/05/19 22 4:54 PM EDT documented as of this encounter Care Teams Door Hanger Relationship Specialty Start Date End Date Rj Genao MD [address] [place] [id number] PCP - General 08/03/14 12/22/24 Pcp, Not Required [address] [place] [id number] PCP - General 12/23/24 12/25/24 Rj Genao MD [address] [place] [id number] PCP - General Internal Medicine 12/26/24 documented as of this encounter Additional Source Comments The information contained in this document represents components of the legal health record. It is not the complete legal health record.[facility]
--- OUTSIDE RECORDS SUMMARY | 2025-03-16 12:44 | XMS_ITS | Encounter Summary ---
Author Organization [facility] Address [address] [place] [address] Phone Care Team Providers Care Supervisor [employer] Name Role Phone Rj Genao MD Primary Care Provider [phone] Pcp, Not Required Primary Care Provider [facility] Rj Genao MD Primary Care Provider + [phone] Encounter Details Date Type Department Care Team (Late st Contact Info) Description 12/19/2024 Procedure Pass [facility] [address] [place] [id number] Social History Tobacco Use Types Packs/Day Years Used Date Smoking Tobacco: Former Cigarettes 1 30 0 [birth year]30/1949 - 03/30/1979 Smokeless Tobacco: Former Alcohol Use Standard Drinks/Week Comments Yes 10 [...] as food, clothing, or medical care? No 12/19/2024 In the past 12 months have y ou been in a relationship with a person who hurts, threatens, or tries to control you? No 12/19/2024 Are you denied basic needs s uch as food, clothing, or medical care? No 12/19/2024 In the past 12 months have y ou been in a relationship with a person who hurts, threatens, or tries to control you? No 12/19/2024 Sex and Gender Information Value Date Recorded Sex Assigned at Male 12/23/2024 7:42 PM EDT Legal Sex Male 6:23 PM EST Gender Identity Male 12/23/2024 7:42 PM EDT Sexual Orientation Straight 12/23/2024 7: 42 PM EDT documented as of this encounter Functional Status * Calculated C-SSRS Risk Score (Lifetime/Recent) Answer Date of Assessment Author No Risk Indicated 12/19/2024 10:00 PM EDT Rosalia Mendez RN * [place] Suicide Severity Rating Scale (Screener/Recent Self-Report) Question Answer Date of Assessment Author 1. Wish to be (Past 1 Month) No 12/19/2024 10:00 PM EDT Rosalia Mendez RN 2. Non-Specific Active Suicidal Thoughts (Past 1 Month) No 12/19/2024 10:00 PM EDT Rosalia Mendez RN 6. Suicidal Behavior (Lifetime) No 12/19/2024 10:00 PM EDT Rosalia Mendez RN documented as of this encounter Plan of Treatment Not on file documented as of this encounter Visit Diagnoses Not on filedocumented in this encounter Additional Health Concerns Assessment Noted Time PHQ-9 Depression Total Score: 0 01/05/20 15 3:13 PM EDT PHQ-2 Depression Total Score: 0 07/05/19 22 4:54 PM EDT documented as of this encounter Care Teams Supervisor [employer] Relationship Specialty Start Date End Date Rj Genao MD [address] [place] [id number] PCP - General 08/03/14 12/22/24 Pcp, Not Required [address] [place] [id number] PCP - General 12/23/24 12/25/24 Rj Genao MD [address] [place] [id number] PCP - General Internal Medicine 12/26/24 documented as of this encounter Additional Source Comments The information contained in this document represents components of the legal health record. It is not the complete legal health record.[facility]
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
--- OUTSIDE RECORDS SUMMARY | 2025-03-16 12:44 | XMS_ITS | Clinical Summary ---
Author Organization [facility] Address [address] [place] [address] Phone Care Team Providers Care Supervisor [employer] Name Role Phone Rj Genao MD Primary Care Provider [phone] Social History Tobacco Use Types Packs/Day Years [...] 02/25/2022 Hypertension/CHF/CAD Annual BMP Blood Test 03/11/2022 Depression Screening 03/30/2024 COVID-19 Vaccine ( season) 2024 01/05/2023, 04/08/2022, 09/06/2021, Additional history exists Influenza Vaccine (#1) 2024 , 03/31/2023, 01/03/2008 [...] age to complete this topic Insurance MEDICARE [facility] Care Teams Supervisor [employer] Relationship Specialty Start Date End Date Rj Genao MD [address] [place] [address] PCP - General 10/30/03
--- OUTSIDE RECORDS SUMMARY | 2025-03-16 12:44 | XMS_ITS | Encounter Summary ---
Author Organization [facility] Address [address] [place] [address] Phone Care Team Providers Care Liquor Tester Name Role Phone Rj Genao MD Primary Care Provider + [phone] Pcp, Not Required Primary Care Provider Unavaila ble Rj Genao MD Primary Care Provider + [phone] Encounter Details Date Type Department Care Team (Latest Contact Info) Description 10/11/[address] [facility] at the [facility] [address] [place] [address] Haroon Collado MD [address] [place] [id number] [email or web address] PAD (peripheral artery disease) (Primary Dx) Social History Tobacco Use Types [...] on file documented as of this encounter Results * US Lower Extremity Graft Scan (Left) (01/04/2015 2:20 PM EDT) EIA PSV cm/sec [facility] Prox NEWSPAPER VENDOR PSV cm/sec [facility] Mid NEWSPAPER VENDOR PSV cm/sec [facility] Dist NEWSPAPER VENDOR PSV cm/sec [facility] Prox SFA PSV cm/sec [facility] Mid SFA PSV cm/sec [facility] Dist SFA PSV cm/sec [facility] PFA PSV cm/sec [facility] Prox Popliteal PSV cm/sec [facility] Mid Popliteal PSV cm/sec [facility] Dist Popliteal PSV cm/sec [facility] Anterior Tibial PSV cm/sec [facility] Postrior Tibial PSV cm/sec [facility] Peroneal PSV cm/sec [facility] NEWSPAPER VENDOR Acceleration Time msec [facility] Arm 124 mmHg [facility] Posterior Tibial 110 mmHg [facility] Posterior Tibial Index 0.89 [facility] Anterior Tibial mmHg [facility] Anterior Tibial Index [facility] Dorsalis Pedis 100 mmHg [facility] Dorsalis Pedis Index 0.81 [facility] EIA PSV cm/sec [facility] Prox NEWSPAPER VENDOR PSV cm/sec [facility] Mid NEWSPAPER VENDOR PSV cm/sec [facility] Dist NEWSPAPER VENDOR PSV cm/sec [facility] Prox SFA PSV cm/sec [facility] Mid SFA PSV cm/sec [facility] Dist SFA PSV cm/sec [facility] PFA PSV cm/sec [facility] Prox Popliteal PSV cm/sec [facility] Mid Popliteal PSV cm/sec [facility] Dist Popliteal PSV cm/sec [facility] Anterior Tibial PSV cm/sec [facility] Postrior Tibial PSV cm/sec [facility] Peroneal PSV cm/sec [facility] NEWSPAPER VENDOR Acceleration Time msec [facility] Arm 117 mmHg [facility] Posterior Tibial 92 mmHg [facility] Posterior Tibial Index 0.74 [facility] Anterior Tibial mmHg [facility] Anterior Tibial Index [facility] Dorsalis Pedis 108 mmHg [facility] Dorsalis Pedis Index 0.87 [facility] Inflow cm/sec [facility] Prox Anastomosis cm/sec [facility] Prox cm/sec [facility] Mid cm/sec [facility] Dist cm/sec [facility] Dist Anastomosis cm/sec [facility] Outflow 1 cm/sec [facility] Outflow 2 cm/sec [facility] Inflow cm/sec [facility] Prox Anastomosis cm/sec [facility] Prox cm/sec [facility] Mid cm/sec [facility] Dist cm/sec [facility] Dist Anastomosis cm/sec [facility] Outflow 1 cm/sec [facility] Outflow 2 cm/sec [facility] Inflow cm/sec [facility] Prox Anastomosis cm/sec [facility] Prox cm/sec [facility] Mid cm/sec [facility] Dist cm/sec [facility] Dist Anastomosis cm/sec [facility] Outflow 1 cm/sec [facility] Outflow 2 cm/sec [facility] Inflow cm/sec [facility] Prox Anastomosis cm/sec [facility] Prox cm/sec [facility] Mid cm/sec [facility] Dist cm/sec [facility] Dist Anastomosis cm/sec [facility] Outflow 1 cm/sec [facility] Outflow 2 cm/sec [facility] Inflow cm/sec [facility] Prox cm/sec [facility] Mid cm/sec [facility] Dist cm/sec [facility] Outflow cm/sec [facility] Inflow cm/sec [facility] Prox cm/sec [facility] Mid cm/sec [facility] Dist cm/sec [facility] Outflow cm/sec [facility] Inflow cm/sec [facility] Prox cm/sec [facility] Mid cm/sec [facility] Dist cm/sec [facility] Outflow cm/sec [facility] Inflow cm/sec [facility] Prox cm/sec [facility] Mid cm/sec [facility] Dist cm/sec [facility] Outflow cm/sec [facility] Anatomical Region Laterality Modality [facility] Narrative 01/08/2015 9:02 AM EDT Patent left lower extremity arterial bypass graft without hemodynamic evidence of significant stenosis Abnormal biltateral lower extremity ankle brachial indexes Lower Extremity Arterial - Graft 1 Left Femoral - Popliteal; Left Le Common femoral artery 95 Proximal anastomosis 96 Proximal graft 57 Proximal high graft 43 Proximal-Mid thigh graft 58 Mid thigh graft 74 Mid-istal thigh graft 61 Distal thigh graft 49 Distal graft ( behind knee ) 63 Distal anastomosis 153 Outflow ( popliteal artery) Introductory Comments An arterial Duplex ultrasound with color- assisted Doppler examination was performed to evaluate a left superficial femoral to left popliteal artery bypass graft. The velocities were taken in cm/s, from proximal to distal. Comments To discuss this report with a Vascular Laboratory physician: Call [phone] during business hours (Thursday-Thursday 8 a.m. to 5 p.m.). After hours, page the Vascular Laboratory physician pay station attendant through the [facility] Clinical Ob Directory. us Haroon Collado MD US VASCULAR Final Result documented in this encounter Visit Diagnoses Diagnosis PAD (peripheral artery disease)- Primary Unspecified peripheral vascular disease PAD (peripheral artery disease) Unspecified peripheral vascular disease documented in this encounter Additional Health Concerns Assessment Noted Time PHQ-9 Depression Total Score: 0 10/11/19 15 2:49 PM EDT PHQ-2 Depression Total Score: 0 10/11/19 15 2:49 PM EDT documented as of this encounter Care Teams Liquor Tester Relationship Specialty Start Date End Date Rj Genao MD [address] [place] [address] PCP - General 08/03/14 12/22/24 Pcp, Not Required [address] [place] [address] PCP - General 12/23/24 12/25/24 Rj Genao MD [address] [place] [address] PCP - General Internal Medicine 12/26/24 documented as of this encounter Additional Source Comments The information contained in this document represents components of the legal health record. It is not the complete legal health record.[facility]
--- OUTSIDE RECORDS SUMMARY | 2025-03-16 12:44 | XMS_ITS | Encounter Summary ---
Author Organization [facility] Address [address] [place] [address] Phone Care Team Providers Care Associate Producer Name Role Phone Pcp, Not Required Primary Care Provider Rj Claire MD Primary Care Provider [phone] Encounter Details Date Type Department Care Team ([facility] Contact Info) Description 12/23/2024 Procedure [facility] Emergency Department, [facility] [address] [place] [address] Social History Tobacco Use Types Packs/Day Years [...] Date of Assessment Author No Risk Indicated 12/23/2024 8:51 PM EDT Blank Cartagena RN * [place] Suicide Severity Rating Scale (Screener/Recent Self-Report) Question Answer Date of Assessment Author 1. Wish to be (Past 1 Month) No 12/23/2024 8:51 PM EDT Blank Cartagena RN 2. Non-Specific Active Suicidal Thoughts (Past 1 Month) No 12/23/2024 8:51 PM EDT Blank Cartagena RN 6. Suicidal Behavior (Lifetime) No 12/23/2024 8:51 PM EDT Blank Cartagena RN documented as of this encounter Plan of Treatment Not on file documented as of this encounter Visit Diagnoses Not on filedocumented in this encounter Additional Health Concerns Assessment Noted Time PHQ-9 Depression Total Score: 0 01/05/20 15 3:13 PM EDT PHQ-2 Depression Total Score: 0 07/05/19 22 4:54 PM EDT documented as of this encounter Care Teams Associate Producer Relationship Specialty Start Date End Date Pcp, Not Required PCP - General 12/23/24 12/25/24 Rj Genao MD [address] [place] [address] PCP - General Internal Medicine 12/26/24 documented as of this encounter Additional Source Comments The information contained in this document represents components of the legal health record. It is not the complete legal health record.[facility]
--- OUTSIDE RECORDS SUMMARY | 2025-03-16 12:44 | XMS_ITS | Clinical Summary ---
Author Organization [facility] Prior to 08/27/24 Address [address] [place] [address] Care Team Providers Care Financial Officer Name Role Phone Unavailable Primary Care Provider [...]
--- OUTSIDE RECORDS SUMMARY | 2025-03-16 12:44 | XMS_ITS | Encounter Summary ---
Author Organization [facility] Address [address] [place] [address] Phone Care Team Providers Care Mitering Machine Operator Name Role Phone Rj Genao MD Primary Care Provider [phone] Pcp, Not Required Primary Care Provider Unavaila ble Rj Genao MD Primary Care Provider [phone] Encounter Details Date Type Department Care Team (Latest Contact Info) Description 06/21/2015 Transcribe Orders [facility] [address] [place] [address] [email or web address] Essential hypertension (Primary Dx) Social History Tobacco [...] documented as of this encounter Care Teams Mitering Machine Operator Relationship Specialty Start Date End Date Rj Genao MD [address] [place] [address] PCP - General 08/03/14 12/22/24 Pcp, Not Required [address] [place] [address] PCP - General 12/23/24 12/25/24 Rj Genao MD [address] [place] [address] PCP - General Internal Medicine 12/26/24 documented as of this encounter Additional Source Comments The information contained in this document represents components of the legal health record. It is not the complete legal health record.[facility]
--- OUTSIDE RECORDS SUMMARY | 2025-03-16 12:45 | XMS_ITS | Clinical Summary ---
Author Organization [facility] Address [address] [facility] [address] [place] [address] Phone Care Team Providers Care Manager Of Disaster Recovery Name Role Phone Rj Genao MD Primary Care Provider [phone] Allergies No known active allergies Medications aspirin [...] age to complete this topic Insurance Medicare [facility] Medicare [employer] Care Teams Manager Of Disaster Recovery Relationship Specialty Start Date End Date Rj Genao MD [address] [place] [address] PCP - General Internal Medicine 04/03/21
--- OUTSIDE RECORDS SUMMARY | 2025-03-16 12:45 | XMS_ITS | Encounter Summary ---
Author Organization [facility] Address [address] [place] [address] Phone Care Team Providers Care Center Hole Reamer Name Role Phone Rj Genao MD Primary Care Provider + [phone] Pcp, Not Required Primary Care Provider Unavaila ble Rj Genao MD Primary Care Provider + [phone] Encounter Details Date Type Department Care Team (Latest Contact Info) Description 08/17/2017 Transcribe Orders [facility] [address] [place] [address] Saba Pollock, RN [address] [place] [address] [email or web address] Hypertension, unspecified type (Primary Dx) Social History Tobacco Use Types [...] Type Priority Associated Diagnoses Orde r Schedule 24 Hour BP Measurement Cardiac Monitors Routine Hypertension, Unspecified Type Expected: 08/24/2017, Expires: 08/17/2018 documented as of this encounter Visit Diagnoses Diagnosis Hypertension, unspecified type- Primary documented in this encounter Additional Health Concerns Assessment Noted Time PHQ-9 Depression Total Score: 0 01/05/20 15 3:13 PM EDT PHQ-2 Depression Total Score: 0 08/18/19 18 1:01 PM EDT documented as of this encounter Care Teams Center Hole Reamer Relationship Specialty Start Date End Date Rj Genao MD [address] [place] [address] PCP - General 08/03/14 12/22/24 Pcp, Not Required [address] [place] [phone] PCP - General 12/23/24 12/25/24 Rj Genao MD [address] [place] [id number] PCP - General Internal Medicine 12/26/24 documented as of this encounter Additional Source Comments The information contained in this document represents components of the legal health record. It is not the complete legal health record.[facility]
--- OUTSIDE RECORDS SUMMARY | 2025-03-16 12:45 | XMS_ITS | Encounter Summary ---
Author Organization [facility] Address [address] [place] [address] Phone Care Team Providers Care Client Relationship Manager Name Role Phone Rj Genao MD Primary Care Provider + [phone] Pcp, Not Required Primary Care Provider Unavaila ble Rj Genao MD Primary Care Provider + [phone] Encounter Details Date Type Department Care Team (Latest Contact Info) Description 10/11/2014 Ancillary Orders [facility] at [facility] [address] [place] [address] Haroon Collado MD [address] [place] [phone] [email or web address] Carotid artery stenosis, unspecified laterality (Primary Dx) Social History Tobacco Use Types [...] as of this encounter Results * US Carotid Duplex (Bilateral) (01/04/2015 2:01 PM EDT) Prox CCA 116 cm/sec [facility] Prox CCA cm/sec [facility] Mid CCA 85 cm/sec [facility] Mid CCA cm/sec [facility] Dist CCA 86 cm/sec [facility] Dist CCA cm/sec [facility] Prox ICA 131 cm/sec [facility] Prox ICA cm/sec [facility] Mid ICA 143 cm/sec [facility] Mid ICA cm/sec [facility] Dist ICA 82 cm/sec [facility] Dist ICA cm/sec [facility] ECA 174 cm/sec [facility] Vertebral 58 cm/sec [facility] Prox Subclavian cm/sec [facility] Mid Subclavian cm/sec [facility] Dist Subclavian cm/sec [facility] Prox CCA 141 cm/sec [facility] Prox CCA cm/sec [facility] Mid CCA 102 cm/sec [facility] Mid CCA cm/sec [facility] Dist CCA 103 cm/sec [facility] Dist CCA cm/sec [facility] Prox ICA 90 cm/sec [facility] Prox ICA cm/sec [facility] Mid ICA 114 cm/sec [facility] Mid ICA cm/sec [facility] Dist ICA 127 cm/sec [facility] Dist ICA cm/sec [facility] ECA 177 cm/sec [facility] Vertebral 65 cm/sec [facility] Prox Subclavian cm/sec [facility] Mid Subclavian cm/sec [facility] Dist Subclavian cm/sec [facility] Anatomical Region Laterality Modality Heart, Thoracic Vasculature, Neck [facility] Narrative 01/08/2015 9:09 AM EDT Less than 50% bilateral internal carotid artery stenosis Carotid Artery Right COMMON CAROTID ARTERY Proximal: no significant stenosis Mid: no significant stenosis Distal: <50% stenosed Distal: plaque Distal: heterogeneous irregular INTERNAL CAROTID ARTERY Proximal: <50% stenosed Proximal: plaque Proximal: heterogeneous irregular Mid: no significant stenosis Distal: no significant stenosis EXTERNAL CAROTID ARTERY <50% stenosed VERTEBRAL antegrade Carotid Artery Left COMMON CAROTID ARTERY Proximal: no significant stenosis Mid: <50% stenosed Mid: plaque Mid: heterogeneous irregular Distal: <50% stenosed Distal: plaque Distal: heterogeneous irregular INTERNAL CAROTID ARTERY Proximal: <50% stenosed Proximal: plaque Proximal: heterogeneous irregular Mid: no significant stenosis Distal: no significant stenosis EXTERNAL CAROTID ARTERY <50% stenosed VERTEBRAL antegrade Comments To discuss this report with a Vascular Laboratory physician: Call [phone] during business hours (Thursday-Thursday 8 a.m. to 5 p.m.). After hours, page the Vascular Laboratory physician compressor station chief engineer through the [facility] Civil Preparedness Coordinator Directory. Haroon Collado MD CV US NEUROVASCULAR Final Resu lt documented in this encounter Visit Diagnoses Diagnosis Carotid artery stenosis, unspecified laterality- Primary Carotid artery stenosis, unspecified laterality documented in this encounter Additional Health Concerns Assessment Noted Time PHQ-9 Depression Total Score: 0 10/11/19 15 2:49 PM EDT PHQ-2 Depression Total Score: 0 10/11/19 15 2:49 PM EDT documented as of this encounter Care Teams Client Relationship Manager Relationship Specialty Start Date End Date Rj Genao MD [address] [place] [address] PCP - General 08/03/14 12/22/24 Pcp, Not Required [address] [place] [phone] PCP - General 12/23/24 12/25/24 Rj Genao MD [address] [place] [phone] PCP - General Internal Medicine 12/26/24 documented as of this encounter Additional Source Comments The information contained in this document represents components of the legal health record. It is not the complete legal health record.[facility]
--- OUTSIDE RECORDS SUMMARY | 2025-03-16 12:45 | XMS_ITS | Encounter Summary ---
Author Organization [facility] Address [address] [place] [address] Phone Care Team Providers Care Reverse Unit Operator Fisherman Name Role Phone Rj Genao MD Primary Care Provider + [phone] Pcp, Not Required Primary Care Provider Unavaila ble Rj Genao MD Primary Care Provider + [phone] Encounter Details Date Type Department Care Team (Latest Contact Info) Description 01/30/2015 Ancillary Orders [facility] [address] [place] [address] Haroon Collado MD [address] [place] [id number] [email or web address] Peripheral vascular disease (Primary Dx); Carotid artery disease Social History Tobacco Use Types Packs/Day Years [...] * US Lower Extremity Graft Scan (Left) (01/08/2016 11:38 AM EDT) EIA PSV cm/sec [facility] Prox CLINICAL SCIENCES PROFESSOR PSV cm/sec [facility] Mid CLINICAL SCIENCES PROFESSOR PSV cm/sec [facility] Dist CLINICAL SCIENCES PROFESSOR PSV cm/sec [facility] Prox SFA PSV cm/sec [facility] Mid SFA PSV cm/sec [facility] Dist SFA PSV cm/sec [facility] PFA PSV cm/sec [facility] Prox Popliteal PSV cm/sec [facility] Mid Popliteal PSV cm/sec [facility] Dist Popliteal PSV cm/sec [facility] Anterior Tibial PSV cm/sec [facility] Postrior Tibial PSV cm/sec [facility] Peroneal PSV cm/sec [facility] CLINICAL SCIENCES PROFESSOR [facility]eleration Time msec [facility] Arm 114 mmHg [facility] Posterior Tibial 100 mmHg [facility] Posterior Tibial Index 0.88 [facility] Anterior Tibial mmHg [facility] Anterior Tibial Index [facility] Dorsalis Pedis 95 mmHg [facility] Dorsalis Pedis Index 0.83 [facility] EIA PSV cm/sec [facility] Prox CLINICAL SCIENCES PROFESSOR PSV cm/sec [facility] Mid CLINICAL SCIENCES PROFESSOR PSV cm/sec [facility] Dist CLINICAL SCIENCES PROFESSOR PSV cm/sec [facility] Prox SFA PSV cm[facility]sec [facility] Mid SFA PSV cm/sec [facility] Dist SFA PSV cm/sec [facility] PFA PSV cm/sec [facility] Prox Popliteal PSV cm/sec [facility] Mid Popliteal PSV cm/sec [facility] Dist Popliteal PSV cm/sec [facility] Anterior Tibial PSV cm/sec [facility] Postrior Tibial PSV cm/sec [facility] Peroneal PSV cm/sec [facility] CLINICAL SCIENCES PROFESSOR Acceleration Time msec [facility] Arm 109 mmHg [facility] Posterior Tibial 80 mmHg [facility] Posterior Tibial Index 0.70 [facility] Anterior Tibial mmHg [facility] Anterior Tibial Index [facility] Dorsalis Pedis 85 mmHg [facility] Dorsalis Pedis Index 0.75 [facility] Inflow cm/sec [facility] Prox Anastomosis cm/sec [...] Outflow cm/sec [facility] Anatomical Region Laterality Modality [facility] Narrative 01/16/2016 10:34 AM EDT Patent left lower extremity arterial graft. Lower Extremity Arterial - Graft 1 Left Femoral - Popliteal; Left Le External iliac artery 68 Proximal anastomosis 55 Proximal graft 42 Proximal thigh graft 36 Mid thigh graft 56 Distal thigh graft 62 Distal anastomosis 43 Outflow 35 Popliteal artery Introductory Comments Prior exam on 01/04/15 An arterial Duplex ultrasound with color- assisted Doppler examination was performed to evaluate a left external iliac to popliteal bypass graft. The velocities were taken in cm/s, from proximal to distal. Comments To discuss this report with a Vascular Laboratory physician: Call [phone] during business hours (Thursday-Thursday 8 a.m. to 5 p.m.). After hours, page the Vascular Laboratory physician consultant intern through the [facility] Foreclosure Paralegal Directory us Haroon Collado MD US VASCULAR Final Result * US Carotid Duplex (Bilateral) (01/08/2016 11:33 AM EDT) Prox CCA 116 cm/sec [facility] Prox CCA cm/sec [facility] Mid CCA 71 cm/sec [facility] Mid CCA cm/sec [facility] Dist CCA 72 cm/sec [facility] Dist CCA cm/sec [facility] Prox ICA 133 cm/sec [facility] Prox ICA cm/sec [facility] Mid ICA 121 cm/sec [facility] Mid ICA cm/sec [facility] Dist ICA 125 cm/sec [facility] Dist ICA cm/sec [facility] ECA 139 cm/sec [facility] Vertebral 54 cm/sec [facility] Prox Subclavian cm/sec [facility] Mid Subclavian cm/sec [facility] Dist Subclavian cm/sec [facility] Prox CCA 149 cm/sec [facility] Prox CCA cm/sec [facility] Mid CCA 109 cm/sec [facility] Mid CCA cm/sec [facility] Dist CCA 75 cm/sec [facility] Dist CCA cm/sec [facility] Prox ICA 96 cm/sec [facility] Prox ICA cm/sec [facility] Mid ICA 122 cm/sec [facility] Mid ICA cm/sec [facility] Dist ICA 102 cm/sec [facility] Dist ICA cm/sec [facility] ECA 127 cm/sec [facility] Vertebral 44 cm/sec [facility] Prox Subclavian cm/sec [facility] Mid Subclavian cm/sec [facility] Dist Subclavian cm/sec [facility] Anatomical Region Laterality Modality Heart, Thoracic Vasculature, Neck [facility] Narrative 01/16/2016 10:33 AM EDT There is no evidence of hemodynamically significant disease in either the right or left carotid artery. Carotid Artery Right COMMON CAROTID ARTERY Proximal: [...] EXTERNAL CAROTID ARTERY <50% stenosed VERTEBRAL antegrade Introductory Comments Prior exam 01/04/15 Comments To discuss this report with a Vascular Laboratory physician: Call [phone] during business hours (Thursday-Thursday 8 a.m. to 5 p.m.). After hours, page the Vascular Laboratory physician consultant intern through the [facility] Foreclosure Paralegal Directory us Haroon Collado MD US NEUROVASCULAR Final Resu lt documented in this encounter Visit Diagnoses Diagnosis Peripheral vascular disease- Primary Unspecified peripheral vascular disease Carotid artery disease Unspecified disorders of arteries and arterioles Carotid artery disease Unspecified disorders of arteries and arterioles Peripheral vascular disease Unspecified peripheral vascular disease documented in this encounter Additional Health Concerns Assessment Noted Time PHQ-9 Depression Total Score: 0 01/05/20 15 3:13 PM EDT PHQ-2 Depression Total Score: 0 01/05/20 15 3:13 PM EDT documented as of this encounter Care Teams Reverse Unit Operator Fisherman Relationship Specialty Start Date End Date Rj Genao MD [address] [place] [id number] PCP - General 08/03/14 12/22/24 Pcp, Not Required [address] [place] [id number] PCP - General 12/23/24 12/25/24 Rj Genao MD [address] [place] [phone] PCP - General Internal Medicine 12/26/24 documented as of this encounter Additional Source Comments The information contained in this document represents components of the legal health record. It is not the complete legal health record.[facility]
== END 2025-03-16 10:42 | disposition home or self-care (01) ==
LOC: HO.HKAS 10:21
PROVIDERS: PCP Internal Medicine; Visit Provider Internal Medicine Nephrology
DX: N18.31 Chronic kidney disease, stage 3a (principal); I15.0 Renovascular hypertension
CPT/HCPCS: 99214

== ENCOUNTER → 2025-03-16 10:20 | Outpatient (BNVA) | payer MEDICARE, OTHER, SELFPAY | PROVIDERS: PCP Internal Medicine; Visit Provider Internal Medicine Nephrology | DX: N18.31 Chronic kidney disease, stage 3a (principal); I15.0 Renovascular hypertension | CPT/HCPCS: 99212 ==